=== PATIENT | male | born 1985 | race Hispanic/Latino ===

== ENCOUNTER 2018-03-17 17:12 | Inpatient (IN) | payer SELFPAY ==
[~2018-03-17 17:12] MED LIST: Bacitracin Zinc Ointment 30 gm TUBE ONE; Heparin 1,000 UNITS/ML VIAL ONE; Lidocaine 0.5%/Epinephrine 1:200,000 50 ml Vial ONE; Thrombin 5000 UNITS/5 ML VIAL ONE
[2018-03-17] MEDS ORDERED: Mannitol 12.5 GM/50 ML ONE (17:44)
[2018-03-17] MEDS ORDERED: manNITOL 20% 500 ML ONE (17:46)
[2018-03-17] MEDS ORDERED: levETIRAcetam 1000 MG/100 ML PREMIX BAG ONE ×2 (17:48→17:57)
[2018-03-17] MEDS ORDERED: Fentanyl 100 MCG/2 ML VIAL ONE ×2 (17:49→22:06)
[2018-03-17] MEDS ORDERED: levETIRAcetam In NaCl (Iso-Os) 1,000 MG in Premix Bag 1 BAG IVPB SCH (18:00)
[2018-03-17] MEDS ORDERED: Thrombin 5000 UNITS/5 ML VIAL ONE (18:10)
[2018-03-17] MEDS ORDERED: Sodium Chloride 0.9% 10 ML ONE (18:26)
[2018-03-17] MEDS ORDERED: Esmolol 100 MG/10 ML VIAL ONE (18:56)
[2018-03-17] MEDS ORDERED: PHENYLEPHRINE-NS 100 MCG/ML 10 ML SYRINGE ONE ×2 (18:56→19:32)
[2018-03-17] MEDS ORDERED: Sterile Water 10 ML VIAL ONE (18:56)
[2018-03-17] MEDS ORDERED: CEFAZOLIN 1 GM VIAL ONE (18:56)
[2018-03-17] MEDS ORDERED: Sodium Bicarbonate 2.5 MEQ/5 ML VIAL ONE (19:21)
[2018-03-17] MEDS ORDERED: Sodium Bicarb 50 MEQ/50 ML Abboject 8.4% SYRINGE ONE (19:22)
[2018-03-17] MEDS ORDERED: Phenylephrine HCL 10 MG/ML VIAL ONE (19:31)
[2018-03-17] MEDS ORDERED: Sodium Chloride 0.9% 20 ML ONE (20:11)
[2018-03-17 21:22] LABS: Actual Bicarbonate (HCO3a) 18.2 mEq/L (22-28); Base Excess (BEa) -5.8 mEq/L (-2.0 to +3.0); CO2 Tension 30.5 mmHg (35.0-45.0); Calcium, Ionized 0.99 mmol/L (1.12-1.30); Carboxyhemoglobin (COHb) 0.8 gm% (0.0-3.0); Hemoglobin (Hb) 9.5 g/dL (14.0-18.0); Potassium - ABG Lab 4.63 mmol/L (3.70-5.30); pH, Arterial 7.39 (7.35-7.45)
[2018-03-17] MEDS ORDERED: Ventilator Sedation Protocol 1 EACH FS SCH (21:25)
[2018-03-17] MEDS ORDERED: Dextrose 50% Abboject 50 ML SYRINGE SLOW IVP PRN (21:25)
[2018-03-17] MEDS ORDERED: Sodium Chloride 0.9% 1,000 ML IV SCH (21:25)
[2018-03-17] MEDS ORDERED: Dextrose 5% in Water 1,000 ML IV PRN (21:25)
[2018-03-17] MEDS ORDERED: Ondansetron PF 4 MG/2 ML Vial IVP PRN (21:25)
[2018-03-17] MEDS ORDERED: Ondansetron ODT 4 MG TAB PO PRN (21:25)
[2018-03-17 21:26] LABS: ALV-art Gradient 155.425 (0-20); Puncture Site ALINE
[2018-03-17] MEDS ORDERED: Propofol BOLUS 1,000 MG/100 ML VIAL IV PRN (21:36)
[2018-03-17] MEDS ORDERED: Fentanyl BOLUS 250 ML IVPB PRN (21:36)
[2018-03-17] MEDS ORDERED: DISCONTINUE PREVIOUS NARCOTIC PAIN MEDICATIONS AND BENZODIAZEPINES FS SCH (21:36)
[2018-03-17] MEDS ORDERED: Morphine 2 MG/ML SYRINGE SLOW IVP PRN (21:36)
[2018-03-17] MEDS ORDERED: Propofol 1,000 MG/100 ML VIAL IV ONE (21:37)
[2018-03-17 21:38] LABS: #Eosinphils 0.1 thou/uL (0.0-0.7); #Lymphocytes 2.8 thou/uL (1.20-3.40); #Monocytes 1.2 thou/uL (0.11-0.59); #Neutrophils 10.9 thou/uL (1.40-6.50); %Basophils 0.2 % (0.0-1.0); %Eosinophils 0.4 % (0.0-10.0); %Monocytes 7.8 % (0.0-10.0); %Neutrophils 72.6 % (42.0-75.0); Hemoglobin 9.2 g/dL (14.0-18.0); Mean Corpuscular Hemoglobin 30.9 pg (27.0-31.0); Mean Corpuscular Volume 88.3 fL (78.0-98.0); Mean Platelet Volume 6.1 fL (7.4-10.4); Platelet Count 302 thou/uL (130-400); RBC Distribution Width 11.8 % (11.5-14.5); Red Blood Cell (RBC) Count 2.98 mill/uL (4.70-6.10)
[2018-03-17 22:03] LABS: ALT (SGPT) 56 U/L (8-55); AST (SGOT) 63 U/L (5-34); Albumin 2.7 g/dL (3.5-5.0); Alkaline Phosphatase 95 U/L (40-150); Anion Gap 19 mmol/L (10-20); BUN (Urea Nitrogen) 18 mg/dL (8.9-20.6); Bilirubin, Total 0.3 mg/dL (0.2-1.2); Calc. Creatinine Clearance 0 mL/min (70-130); Calcium 7.2 mg/dL (7.8-10.44); Carbon Dioxide 16 mmol/L (22-29); Chloride 108 mmol/L (98-107); Estimated GFR-MDRD 84; Globulin 2.2 g/dL (2.4-3.5); Glucose 268 mg/dL (70-105); Magnesium 1.8 mg/dL (1.6-2.6); Phosphorus 5.1 mg/dL (2.3-4.7); Potassium 4.4 mmol/L (3.5-5.1); Protein, Total 4.9 g/dL (6.0-8.3); Sodium 139 mmol/L (136-145)
[2018-03-17] MEDS: fentaNYL Citrate/PF 2,000 MCG in Sodium Chloride 0.9% 60 ML IV SCH (22:19)
[2018-03-17] MEDS: Famotidine/PF 20 mg/2ml Vial SLOW IVP SCH (22:27)
[2018-03-17] MEDS: CEFAZOLIN 2 GM/50 ML-DEXTROSE 2 GM in Premix Bag 1 BAG IVPB SCH (22:28)
[2018-03-17] MEDS ORDERED: Calcium Chloride 1 GM/10 ML Abboject SYRINGE IVP SCH (22:30)
[2018-03-17] MEDS ORDERED: Sodium Chloride 0.9% 500 ML IVPB SCH (22:30)
[2018-03-17] MEDS ORDERED: Fentanyl 100 MCG/2 ML VIAL SLOW IVP SCH (22:30)
[2018-03-17 22:52] LABS: INR-International Normal Ratio 1.2; PTT 26.1 SEC (22.9-36.1); Prothrombin Time 15.5 SEC (12.0-14.7)
[2018-03-17] MEDS: hydrALAZINE 20 MG/ML VIAL SLOW IVP PRN (23:13)
[2018-03-18] MEDS: Acetaminophen 1,000 MG in Premix Bag 1 BAG IVPB SCH ×4 (00:10→17:49)
[2018-03-18] MEDS: Lactated Ringer's 1,000 ML IV SCH ×3 (00:49→21:44)
[2018-03-18 01:07] LABS: Actual Bicarbonate (HCO3a) 20.8 mEq/L (22-28); Base Excess (BEa) -3.5 mEq/L (-2.0 to +3.0); CO2 Tension 34.1 mmHg (35.0-45.0); Calcium, Ionized 1.17 mmol/L (1.12-1.30); Hemoglobin (Hb) 7.7 g/dL (14.0-18.0); O2 Tension (PaO2) 145.8 mmHg (80.0-100.0); Potassium - ABG Lab 4.08 mmol/L (3.70-5.30)
[2018-03-18 01:09] LABS: ALV-art Gradient 96.775 (0-20); Puncture Site ALINE
--- NOTE | 2018-03-18 04:15 | HP ---
TRAUMA ATTENDING: Justin Weston MD HISTORY OF PRESENT ILLNESS: This is a 32-year-old male who presented to [facility] as a transfer from [facility] status post traumatic fall. He was taken immediately to the operating room; therefore, his physical exam and history and physical were performed postoperatively. There is no family at bedside and the patient is intubated; therefore, we are unable to obtain a history. History obtained from neurosurgical personnel and medical records review. Per report, the patient had a fall of approximately 18 feet from a roof where he was working. He reportedly landed on his head. He was initially seen and evaluated at [facility] and found to have evidence of epidural hematoma with subdural hematoma as well. It is unclear what his GCS was on arrival to the initial facility. Neurosurgery was notified and they transferred the patient emergently to [facility]. The patient was taken immediately from the helipad to the operating room for cranial decompression. Postoperatively, the patient's initial vital signs were heart rate in the 160s, systolic blood pressure in the one- teens. The patient was over-breathing with the ventilator. He is moving all extremities at this time, but does not follow commands. GCS is E1, V1, M5 for a 7T. PAST MEDICAL HISTORY: Allergies, unknown. HOME MEDICATIONS: Unknown. CHRONIC MEDICAL ILLNESSES: Unknown. PAST SURGICAL HISTORY: Unknown. SOCIAL HISTORY: Unknown. FAMILY HISTORY: Unknown. REVIEW OF SYSTEMS: Unobtainable. PHYSICAL EXAMINATION: VITAL SIGNS: Most recent vital signs, heart rate 109, blood pressure 140/60, O2 saturation 100%, respiratory rate 16. GENERAL: Young male in moderate distress, thrashing in bed. HEAD: Surgical dressing is clean, dry, and intact. There is a SIRIA drain with serosanguineous drainage. EYES: Bilateral swelling with left greater than right ecchymosis. Left pupil is approximately 5 to 6 mm and fixed. Right pupil is 2 mm and does not appear to be reactive. NECK: Supple. Trachea is midline. CHEST: Atraumatic. Symmetric chest rise. LUNGS: Clear to auscultation bilaterally. CARDIOVASCULAR: Tachycardic. No obvious murmurs, rubs, or gallops. GI: Abdomen is soft, nontender, nondistended. Bowel sounds are positive. MUSCULOSKELETAL: Moves all extremities x4. No gross bony deformity. NEUROLOGIC: GCS 7T, moves all extremities. Does not follow commands. LABORATORY FINDINGS: Postoperative laboratory findings include WBC 15.0, hemoglobin 9.2, hematocrit 26.3, platelet count 302. PT/INR is pending. Sodium 139, potassium 4.4, chloride 108, carbon dioxide 16, BUN 18, creatinine 1.03, glucose 268. Calcium 7.2, phosphorus 5.1, AST 63, ALT 56, pH 7.39, pCO2 of 30.5, pO2 of 56, base excess -5.8, ionized calcium 0.99, and bicarb 18.2. RADIOGRAPHIC FINDINGS: CT of the head was read as, left frontotemporal subdural hematoma with intra-axial hemorrhage, comminuted displaced calvarial fractures including the left frontal, temporal bones, and left orbital roof, left to right subfalcine herniation, sphenoid body fracture with evidence of possible epidural hematoma compressing the left temporal lobe. CT of the C-spine and T-spine with superior endplate T3 fracture. CT of the chest, abdomen, and pelvis demonstrated a T3 compression fracture approximately 20% and mild compression fracture of L1. CT of the face with multiple facial fractures to include left zygomatic arch, left inferior orbital rim, left orbital floor fracture with possible herniation of intraorbital fat, left orbital roof fracture, left lateral orbital rim, and frontozygomatic suture diastasis, sagittal fracture of the right sphenoid body, and cribriform plate fractures. Chest x-ray with diffuse left lung infiltrates. VENTILATOR SETTINGS: SIMV, respiratory rate of 14, tidal volume 500, PEEP of 5, FiO2 of 40%, pressure support of 10. ASSESSMENT: 1. Status post fall 18 to 20 feet. 2. Severe traumatic brain injury, status post decompressive surgery with epidural, subarachnoid, and subdural hemorrhage. 3. Multiple facial fractures, left greater than right. 4. Acute traumatic respiratory failure secondary to above. 5. Hypocalcemia. 6. Acute traumatic pain. 7. Metabolic acidosis. 8. T3 and L1 compression fractures. PLAN: The patient has been admitted to ICU. The patient did receive one dose of mannitol in the operating room. We will follow urine output and sodium levels. Continue fluid resuscitation. Maximize medical therapy. Continuous end-tidal CO2 monitoring for a goal CO2 of 32 to 35. Per Neurosurgery, systolic blood pressure goal less than 140, attempt to maintain MAP of at least 70. IV Sedation and analgesia; q1-hour neuro checks. Head of bed at 30 degrees, but not greater than until Neurosurgery has ordered a planned brace for thoracic and possible lumbar spine fractures. OMFS evaluation. Critical care consultation for assistance with critical care management. 2 gram of calcium chloride now. Plan of care was discussed with Neurosurgery and trauma attending. No family at bedside or information available for update. Total critical care time spent at the patient's bedside approximately 48 minutes. Job ID: [id number] MTDD
[2018-03-18 04:42] LABS: #Lymphocytes 2.1 thou/uL (1.20-3.40); #Monocytes 0.9 thou/uL (0.11-0.59); #Neutrophils 6.8 thou/uL (1.40-6.50); %Basophils 0.1 % (0.0-1.0); %Eosinophils 0.4 % (0.0-10.0); %Lymphocytes 21.1 % (21.0-51.0); %Monocytes 9.3 % (0.0-10.0); %Neutrophils 69.1 % (42.0-75.0); Hemoglobin 7.1 g/dL (14.0-18.0); Mean Corpuscular HGB CONC 34.9 g/dL (32.0-36.0); Mean Corpuscular Hemoglobin 30.8 pg (27.0-31.0); Mean Corpuscular Volume 88.4 fL (78.0-98.0); Mean Platelet Volume 6.7 fL (7.4-10.4); Platelet Count 232 thou/uL (130-400); RBC Distribution Width 11.8 % (11.5-14.5); Red Blood Cell (RBC) Count 2.32 mill/uL (4.70-6.10); White Blood Cell (WBC) Count 9.8 thou/uL (4.8-10.8)
[2018-03-18 05:03] LABS: Anion Gap 11 mmol/L (10-20); BUN (Urea Nitrogen) 14 mg/dL (8.9-20.6); Calc. Creatinine Clearance 205 mL/min (70-130); Calcium 8.3 mg/dL (7.8-10.44); Carbon Dioxide 22 mmol/L (22-29); Chloride 112 mmol/L (98-107); Estimated GFR-MDRD Greater than 90; Glucose 139 mg/dL (70-105); Magnesium 1.5 mg/dL (1.6-2.6); Phosphorus 3.8 mg/dL (2.3-4.7); Potassium 4.5 mmol/L (3.5-5.1); Sodium 140 mmol/L (136-145)
--- NOTE | 2018-03-18 06:05 | CON ---
DATE OF CONSULTATION: This is a 50-minute initial patient evaluation, of which greater than 50% of the exam was spent counseling and coordinating the patient's care. Remainder of the exam was spent in reviewing the patient's medical records and review of appropriate imaging studies. CHIEF COMPLAINT: Status post fall from an 18-feet roof with severe head trauma including left temporal epidural hematoma. HISTORY OF PRESENT ILLNESS: Mr. Conway is a 32-year-old male who presents to [facility] as a transfer from [facility] as a trauma. Initially, the patient was known only as Camden Dickerson. The patient was unable to provide any type of history as he was intubated; however, review of the patient's medical records and discussion with medical providers notes that the patient fell roughly 18 feet from a roof while at work today. He suffered significant facial and head trauma. CT scans were obtained, most notably that showed multiple facial fractures and a displaced left temporal skull fracture with traumatic subarachnoid hemorrhage and subdural hematoma. Given the acuity required of the patient's care, he was transferred from ER and was taken to the OR for immediate evacuation of his left temporal epidural hematoma. No family or co-workers are available to discuss the patient's medical history. According to the [facility], the patient was following commands in all four extremities prior to going to CT scan, but when he returned from CT scan, became very combative and quickly neurologically declined, requiring him to be intubated. He did however, have movement in all 4 extremities when the patient was given rocuronium in flight when transferred from the [facility] to [place] [facility] room. Upon his arrival to [facility], the patient had no movement of any of the extremities. He did appear to have some left-sided facial trauma and significant swelling of the left eye. PHYSICAL EXAMINATION: The patient had no movement of any of the extremities. He was taken emergently to the OR for immediate evacuation of his epidural hematoma. His left eye was significantly swollen with surrounding ecchymosis and some superficial abrasions to the left side of the face. His right pupil is roughly 3 to 4 mm and minimally reactive while the left pupil was fixed and dilated. The patient was intubated at that time and again had received just prior to his arrival. Systolic blood pressure was in the 160s with diastolic in the 110s. IMPRESSION AND DIAGNOSES: Status post fall with left temporal region epidural hematoma. PLAN: We will plan to take the patient emergently to the OR for evacuation of left temporal epidural hematoma as well as left temporoparietal subdural hematoma. Again, this is emergent in nature. Unfortunately, there is no family or co-workers to update regarding the patient's guarded prognosis. Job ID: [id number]
[2018-03-18] MEDS: Propofol 1,000 MG/100 ML VIAL IV PRN ×3 (06:13→21:43)
[2018-03-18] MEDS: CEFAZOLIN 2 GM/50 ML-DEXTROSE 2 GM in Premix Bag 1 BAG IVPB SCH ×3 (06:13→21:43)
[2018-03-18] MEDS ORDERED: CCU Electrolyte Replacement 1 EACH FS ONE (07:53)
[2018-03-18] MEDS ORDERED: Potassium Phosphate 15 MMOL in Sodium Chloride 0.9% 250 ML 250 ML IV PRN (08:17)
[2018-03-18] MEDS ORDERED: Magnesium Oxide 400 MG TAB PO PRN ×2 (08:17)
[2018-03-18] MEDS ORDERED: CCU ELECTROLYTE REPLACEMENT PROTOCOL FS PRN (08:17)
[2018-03-18] MEDS ORDERED: Potassium Chloride 40 MEQ in Sodium Chloride 0.9% 250 ML 250 ML IVPB PRN (08:17)
[2018-03-18] MEDS ORDERED: Potassium Chloride 20 MEQ TAB PO PRN (08:17)
[2018-03-18] MEDS ORDERED: Potassium Phosphate 12 MMOL in Sodium Chloride 0.9% 250 ML 250 ML IV PRN (08:17)
[2018-03-18] MEDS ORDERED: Magnesium 2 GM/NS 0.9% 100 ML 2 GM in Premix Bag 1 BAG IVPB PRN (08:17)
[2018-03-18] MEDS ORDERED: Potassium Phosphate 9 MMOL in Sodium Chloride 0.9% 100 ML IVPB PRN (08:17)
[2018-03-18] MEDS ORDERED: Iopamidol 370 76% 100 ML VIAL ONE (09:00)
--- NOTE | 2018-03-18 09:04 | CT ---
PRELIMINARY REPORT/[facility]/EMERGENTY AFTER-HOURS PROCEDURE CT Head Without Contrast EXAM DATE/TIME: 03/18/2018 4:35 AM CLINICAL HISTORY: 32 years old, male; Condition or disease; Other: Edh evac; Prior surgery; Surgery date: Postoperative (0-2 days); Patient HX: Follow up S/P edh evac TECHNIQUE: Axial computed tomography images of the head/brain without contrast. COMPARISON: No relevant prior studies available. FINDINGS: Brain: See Bones/joints Finding. Midline shift: There is slight left to right midline shift of approximately 2 mm. Ventricles: Normal. No ventriculomegaly. Bones/joints: Postsurgical changes with left craniotomy status post left extra-axial hematoma drainag e. There is air and residual hemorrhage in the left frontal region including an approximately 1.7 cm focus of intraparenchymal hemorrhage and air. Comparison with previous films would be helpful to assess for interval change. Status post left-sided craniotomy with what appears to be comm inuted fracture of the inferior aspect of the left frontal bone. Sinuses: Moderate paranasal sinus opacification. Mastoid air cells: Normal as visualized. No mastoid effusion. IMPRESSION: 1. Postsurgical changes with left craniotomy status post left extra-axial hematoma drainage. There is air and residual hemorrhage in the left frontal region including an approximately 1.7 cm focus of in traparenchymal hemorrhage and air. There is slight left to right midline shift of approximately 2 mm. Comparison with previous films would be helpful to assess for interval change. 2. Remainder of findings as described above. Thank you for allowing us to participate in the care of your patient. Dictated and Authenticated by: Shilpa Kenyon MD 03/18/2018 5:56 AM Central Time ([place] & [place]) HEAD CT WITHOUT CONTRAST: Date: 03/18/18 COMPARISON: None. HISTORY: Evaluate following epidural hematoma evacuation. FINDINGS: There is partial opacification of the sphenoid sinuses and ethmoid air cells bilaterally. There is a comminuted fracture involving the orbital roof laterally on the left. There is a fracture involving t he floor of the middle cranial fossa on the left. There is a fracture suspected involving the clivus to the right of midline extending into the right sphenoid sinus. There is a fracture in the region of the sphenoid roof on the right extending into the region of the sella turcica. CT of the facial bone s is suggested for full assessment. Craniotomy changes are noted on the left in the frontal region. There is pneumocephalus on the left consistent with recent surgery. There is a postoperative drain wi thin the ventral floor of the left middle cranial fossa. There is mild left to right midline shift measuring in the 2-3 mm range. There is small volume bilateral subarachnoid hemorrhage and bilateral frontal lobes near the vertex, left greater than right. Additional foci of subarachnoid hemorrhage suspected on the posterior left t emporoparietal region and possibly the inferolateral posterior right frontal region. A focus of intra-axial hemorrhage is suspected within the left frontal lobe on axial image 16 measuri ng 6.0 mm. Further inferiorly within the inferolateral aspect of the left frontal lobe, there is a 1. 9 cm intra-axial hemorrhage suggesting possible hemorrhagic contusion. There is small volume extra-ax ial blood within the middle cranial fossa on the left measuring 9.0 mm. In addition, extra-axial bloo d is seen anterior to the left temporal tip, measuring up to 1.0 cm in greatest thickness, with subdu ral blood lateral to the left temporal lobe on axial image 10. Probable partially visualized fracture of zygomatic arch noted on the left. IMPRESSION: Intracranial hemorrhage bilaterally, left greater than right, as detailed above. Foci of intra-axial hemorrhage are noted within the left frontal lobe as well. There is minimal left to right midline cruz ft and there are extensive fractures in the region of the left orbit and skull base, which are not we ll assessed on this examination. Detailed assessment via CT examination of the facial bones is advise azeem Moffett. POS: [facility]
--- NOTE | 2018-03-18 09:05 | RAD ---
CHEST 1 VIEW: Date: 03/18/18 HISTORY: Dyspnea. Intubated. FINDINGS: No comparison. Cardiac silhouette is magnified by projection. Pulmonary vasculature is accentuated by shallow inspir ation. Mediastinum midline. Tip of an endotracheal catheter overlies the thoracic inlet. Tip of a rig ht subclavian central venous catheter overlies the inferior margin of the right atrium. No evidence o f pneumothorax. engineer intern leads overlie the chest. IMPRESSION: Endotracheal catheter and right subclavian central venous catheter are in good radiographic position. POS: [facility]
--- NOTE | 2018-03-18 09:12 | CT ---
CT THORAX WITHOUT CONTRAST: Date: 03/18/18 HISTORY: Status post fall from roof. Decreased hemoglobin and hematocrit. COMPARISON: None. TECHNIQUE: Noncontrast chest CT is performed in the axial plane. Reformatted images are submitted for interpreta tion. FINDINGS: There is an endotracheal and nasogastric tube. There is no mediastinal mass, lymphadenopathy, or bertin rosana. The visualized solid organs are unremarkable. Vicarious excretion of contrast into the gallblad genna is noted. Visualized lung parenchyma demonstrate bibasilar and dependent consolidation, which is presumed to be due to atelectasis. Aspiration and/or pneumonia cannot be excluded. There is a nonspecific opacifica tion in the left lung apex. Trachea and central bronchi are patent. There is a small fracture involving the anterior superior aspect of T2. There is a mild compression f racture with mild loss of vertebral body height involving the T3 vertebral body. Mild retropulsion is suspected. There is a small fracture fragment along the anterior superior aspect of the T3 vertebral body, to the right side. The remaining thoracic vertebra demonstrate preservation of vertebral body height. No fracture. Central spinal canal and neural foramina are patent. IMPRESSION: 1. Fractures involving the T2 and T3 vertebral bodies as described above. 2. Lung parenchymal opacification as detailed above. POS: [facility]
--- NOTE | 2018-03-18 09:18 | CT ---
LUMBAR SPINE CT WITHOUT CONTRAST: Date: 03/18/18 HISTORY: Patient fell from roof. Decreased hemoglobin and hematocrit. COMPARISON: None. TECHNIQUE: Noncontrast lumbar spine CT is performed in the axial plane. Reformatted images are submitted for int erpretation. FINDINGS: No evidence of a hematoma in the visualized mesentery and retroperitoneal structures. There is maribeth ous excretion of contrast into the gallbladder. Small amount of contrast is suggested in the intraren al and extrarenal collecting systems. Correlate for recent IV contrast administration. There is irregularity involving the posterior superior end plate of L5 with sclerosis suggesting a re mote Schmorl's node. Lumbar spine vertebral body height is maintained. There are no lumbar spine frac tures. There is no spondylolisthesis. No spondylolysis. There is partial sacralization of L5 with pse udoarthrosis of the left and right L5 ala with the sacrum. Limited evaluation of the contents of the central spinal canal and neural foramina due to technique. From T12-L1 to L2-L3, no significant central canal stenosis or neural foraminal narrowing. L3-L4: Generalized disc bulge and ligamentum flavum thickening result in mild central canal stenosis . Neural foramina are patent. L4-L5: Generalized disc bulge abuts the thecal sac. There is no significant central canal stenosis. Right neural foramen is mild to moderately narrowed. Left neural foramen is minimally narrowed. IMPRESSION: 1. No significant central canal stenosis or foraminal narrowing. 2. No evidence of a lumbar spine fracture. 3. Remote injury along the posterior superior aspect of the L4 vertebral body with sclerosis suggest s a remote Schmorl's node. POS: [facility]
--- NOTE | 2018-03-18 09:38 | CT ---
CT MAXILLOFACIAL NONCONTRAST: Date: 03/18/18 Time; 0842 hours HISTORY: 32-year-old male status post acute head trauma and facial trauma from fall from roof. FINDINGS: Endotracheal tube passes through the larynx. Orogastric tube is located posterior and to the left of the larynx, presumably in the esophagus. Partial visualization of very recent ORIF of the comminuted fractures of left frontal and temporal (squamosal portion) bones. External surgical drain is now pres ent in the extra-axial hematoma in the left middle cranial fossa, which has decreased in volume since original CT at [facility]. Mildly displaced fractures of cribriform plate. Nondi splaced fracture of left inferior orbital rim continuing posteriorly as a mildly depressed left orbit al floor fracture. Left zygomatic arch displaced fracture. Diastasis of left zygomaticofrontal suture and displaced fracture of superolateral orbital rim. Interval evacuation of the left lateral extraco nal intraorbital hematoma since the original CT at [facility]. A minimal amount r emains. Interval improvement in the left proptosis. Preseptal periorbital soft tissue swelling on the left. Minimally displaced fractures of anterior wall and posterolateral wall of left maxillary sinus . Left hemoantrum. Near total opacification of nasal cavity, sphenoid sinus, and ethmoid air cells. N ondisplaced sagittally oriented fracture through right side of body of sphenoid, including draper of r ight sphenoid air cell. No mandibular fracture. IMPRESSION: 1. Status post open reduction and internal fixation of left frontotemporal acute, traumatic comminut ed fractures. 2. Status post evacuation of subdural or epidural hematoma in left middle cranial fossa, now with clark rgical drain. 3. Interval evacuation of left lateral extraconal intraorbital hematoma. 4. Displaced acute, traumatic facial bone fractures, including the left ZMC (zygomaticomaxillary com plex) fractures, bilateral cribiform plate, left orbit, and sphenoid body. POS: [facility]
[2018-03-18] MEDS: Famotidine/PF 20 mg/2ml Vial SLOW IVP SCH ×2 (10:15→21:44)
--- NOTE | 2018-03-18 10:28 | PRG ---
DATE OF SERVICE: 03/18/2018 SUBJECTIVE: Mr. Conway was taken to [facility]. Head CT demonstrated complex basal and calvarial skull fractures extending to the left side of the skull. He also had associated epidural and subdural hematoma with left frontal parenchymal contusion. He was taken emergently to the operating room following transfer to [facility] for higher level of care. This was performed given the patient's clinical and radiologic progression and his neurological decline. Postoperative head CT demonstrates improvement in midline shift and expected postoperative changes. We will keep his epidural drain in place at this time and obtain CT of the thoracic and lumbar spine. I reviewed the CT of the cervical spine from [facility] and it is negative for acute abnormality. Job ID: [id number]
[2018-03-18 10:34] LABS: Hemoglobin 6.5 g/dL (14.0-18.0); Platelet Count 229 thou/uL (130-400)
--- NOTE | 2018-03-18 10:44 | CT ---
CHEST CT WITH CONTRAST ABDOMEN CT WITH CONTRAST PELVIC CT WITH CONTRAST: Date: 03/18/18 HISTORY: Patient recently fell from a roof. Drop in hemoglobin and hematocrit. COMPARISON: None. TECHNIQUE: Chest, abdomen, and pelvic CT performed in axial plane. Coronal reformatted images are submitted for interpretation. FINDINGS: CHEST CT: Note is made of an endotracheal and nasogastric tube. Unremarkable axilla and thyroid gland. No media stinal mass, lymphadenopathy, or hematoma. Heart size is within normal limits. Visualized aorta has a normal caliber. No periaortic fat stranding. Trachea and central bronchi are patent. Patchy opacities in both upper lobes, as well as consolidatio n in the dependent portion of both lower lobes suggesting multilobar atelectasis, possible aspiration or pneumonia. Contusion is less favored. No pleural effusion or pneumothorax. ABDOMEN CT: Vicarious excretion of contrast in the gallbladder. There is appropriate enhancement of the solid org ans. No evidence of perihepatic or perisplenic free fluid. Pancreas and adrenal glands are unremarkab le. Symmetric enhancement of the kidneys. No obstructive uropathy. No mesenteric mass, lymphadenopathy, free air, or free fluid. Limited evaluation of the alimentary canal. No evidence of bowel obstruction. Normal caliber appendix . Unremarkable colon. Symmetric attenuation of psoas muscles. No retroperitoneal mass, lymphadenopathy, or hematoma. CT PELVIS: Urinary bladder is decompressed due to Ibarra catheterization. No pelvic mass, lymphadenopathy, free a ir, or free fluid. The visualized bony thorax and bony pelvis are intact. The aforementioned fractures of the thoracic vertebra have already been described on a separate [facility] spine CT report. IMPRESSION: 1. Consolidation of the lung parenchyma, which is presumed to be due to atelectasis, aspiration, or pneumonia. Contusions are less favored. 2. No evidence of a retroperitoneal hematoma. POS: [facility]
[2018-03-18] MEDS: Thiamine HCl 200 MG/2 ML VIAL SLOW IVP SCH (10:46)
--- NOTE | 2018-03-18 11:31 | CON ---
DATE OF CONSULTATION: 03/18/2018 CONSULTING PHYSICIAN: Trauma Service. REASON FOR CONSULTATION: Ventilator management following encompassed 35 minutes of critical care time. HISTORY OF PRESENT ILLNESS: This is a 32-year-old male, who was accepted in transfer from [facility] last night. He apparently fell backwards from a ladder, hitting his head sustaining an epidural hematoma and subdural hematoma. He went to the operating room and had cranial decompression performed by Neurosurgery. He also has multiple facial fractures including the left zygomatic arch, left inferior orbital rim, left orbital floor with possible herniation of intraorbital fat, left orbital roof fracture, left lateral orbital rim fracture and frontozygomatic suture diastasis, sagittal fracture of the right sphenoid body and cribriform plate fractures. I believe, he also has a T3 fracture. Did not have any acute injuries noted on CT of chest, abdomen, and pelvis other than T3 fracture and mild compression fracture of L1. PAST MEDICAL HISTORY: Unknown. PAST SURGICAL HISTORY: Unknown. ALLERGIES: UNKNOWN. SOCIAL HISTORY: Unknown. REVIEW OF SYSTEMS: Not obtainable. There is no family present to give history. PHYSICAL EXAMINATION: VITAL SIGNS: Temperature 99.0, pulse 78, blood pressure 111/70, O2 saturation 100%. He is currently on propofol and fentanyl. NEUROLOGIC: The patient moves all 4 extremities spontaneously with stimulation. Did not follow any commands. Will not open his eyes to command. HEENT: He has extensive periorbital edema. When I assist him in opening his eyes, his pupils are reactive. Sclerae are anicteric. Oropharynx, ET tube in place. NECK: No JVD. LUNGS: Clear without wheezing or rhonchi. CARDIAC: S1 and S2. Slightly tachycardic. No murmur. ABDOMEN: Soft, nontender, and nondistended. EXTREMITIES: No clubbing, cyanosis, or edema. LABORATORY DATA: PH 7.40, pCO2 of 34, pO2 of 145 on SIMV rate 18, tidal volume 500, PEEP 5, pressure support 10, and FiO2 of 40%. Sodium 140, potassium 4.5, chloride 112, CO2 of 22, BUN 14, creatinine 0.7, glucose 139, phosphorus 3.8, and magnesium 1.5. White blood cell count 9.8, hemoglobin 7.1, hematocrit 20.5, and platelet count 232. DIAGNOSTIC DATA: Chest x-ray demonstrated ET tube that is appropriately placed. Lung randall looked to be fairly clear. Diaphragm margin is clear. He has a central line coursing from the right subclavian vein down to his superior vena cava. I do not see any evidence of pneumothorax. Brain CT from today demonstrates the multiple fractures described earlier. There is a large hematoma in the left temporal region. There is some air in the subdural space. I do not see any midline shift on this current scan, looks to be scattered subarachnoid hemorrhage throughout. ASSESSMENT: 1. Status post traumatic brain injury after fall. 2. T-spine fracture. 3. Multiple facial fractures. 4. Significant drop in hemoglobin and hematocrit. RECOMMENDATIONS: 1. I will discuss with the Trauma Service. It might be worthwhile to repeat CT of his chest, abdomen, and pelvis given the drop in his H and H. I am not sure the drop can solely be explained by IV fluids. 2. Low threshold for transfusion. 3. Not weanable at this time until his mental status improves. 4. Add thiamine in case he is an alcohol abuser. Job ID: [id number]
[2018-03-18] MEDS: Piperacillin/Tazobactam 3.375 GM in Sodium Chloride 0.9% 100 ML IVPB SCH ×2 (11:49→17:50)
[2018-03-18] MEDS: fentaNYL Citrate/PF 2,000 MCG in Sodium Chloride 0.9% 60 ML IV SCH (14:11)
--- NOTE | 2018-03-18 14:32 | OP ---
DATE OF PROCEDURE: 03/18/2018 OPERATING ROOM: 12. WOUND CLASSIFICATION: Contaminated wound. RAIL OPERATIONS CONTROLLER: Jigar Tan PA-C PREPROCEDURE DIAGNOSES: Complex comminuted open skull fracture of the left frontal and temporal regions with exposed brain, dural laceration, epidural hematoma, subdural hematoma, and left frontal hemorrhagic contusion. Neurologic and radiologic decline. POSTPROCEDURE DIAGNOSES: Complex comminuted open skull fracture of the left frontal and temporal regions with exposed brain, dural laceration, epidural hematoma, subdural hematoma, and left frontal hemorrhagic contusion. Neurologic and radiologic decline. PROCEDURE: 1. Left frontotemporal craniotomy for epidural, subdural and intraparenchymal hemorrhagic contusion evacuation and left frontal lobe debridement 2. Repair of complex comminuted open skull fracture A modifier 57 should be added to the surgery as the decision to operate was made on the day I saw the patient. DESCRIPTION OF PROCEDURE: Given the emergent nature, the patient was positioned supine on the OR table and his head turned to the left to expose the left frontal, temporal, and parietal regions. We maintained cervical spine in neutral position. Abrasions on the left hemicranium were identified in the scalp. A large question-michel incision was drawn out following the clipping of hair. Sterile cleansing, preparation, and draping was performed. Proper patient pause and identification were again performed. A question-michel incision was then opened in the scalp, reflected with the temporalis muscle. Complex comminuted skull fracture was identified with left frontal lobe emanating out of the fracture defect and dural laceration. We removed the fracture in multiple fragments and exposed the left frontotemporal region, and a large epidural hematoma was evacuated. Hemostasis was maintained. The dura was then opened and an acute subdural hematoma was also evacuated. There was a left frontal hemorrhagic contusion and this was also evacuated and hemostased. Copious irrigation occurred throughout. We then on the back table repaired his complex comminuted open skull fracture with multiple titanium plates and screws. We then replaced it and placed titanium plates and screws around the periphery of the flap to secure to the skull. An epidural drain was placed and placed to bulb suction. Wound was copiously irrigated and closed in an anatomic layers following sprinkling of vancomycin powder. The patient was taken back to the ICU, intubated. Job ID: [id number] [facility]
--- NOTE | 2018-03-18 14:35 | PRG ---
DATE OF SERVICE: 03/18/2018 Please see Disha Covarrubias's H and P for full details. Mr. Conway is status post craniotomy last night. Appreciate Dr. Coreas's anesthesiologists' assistant in the critical care. Plans per Neurosurgery and Dr. Coreas. Trauma will continue to follow. Job ID: [id number]
[2018-03-18 20:19] LABS: Hemoglobin 8.4 g/dL (14.0-18.0); Platelet Count 206 thou/uL (130-400)
[2018-03-19] MEDS: Acetaminophen 1,000 MG in Premix Bag 1 BAG IVPB SCH ×4 (01:45→17:46)
[2018-03-19] MEDS: Piperacillin/Tazobactam 3.375 GM in Sodium Chloride 0.9% 100 ML IVPB SCH ×4 (01:46→17:46)
[2018-03-19] MEDS: Lactated Ringer's 1,000 ML IV SCH ×4 (01:47→23:05)
[2018-03-19] MEDS: Propofol 1,000 MG/100 ML VIAL IV PRN ×4 (01:47→17:45)
[2018-03-19] MEDS: fentaNYL Citrate/PF 2,000 MCG in Sodium Chloride 0.9% 60 ML IV SCH ×2 (05:05→18:31)
[2018-03-19] MEDS: CEFAZOLIN 2 GM/50 ML-DEXTROSE 2 GM in Premix Bag 1 BAG IVPB SCH (06:11)
[2018-03-19 06:18] LABS: #Eosinphils 0.2 thou/uL (0.0-0.7); #Lymphocytes 2.4 thou/uL (1.20-3.40); #Monocytes 0.8 thou/uL (0.11-0.59); #Neutrophils 6.8 thou/uL (1.40-6.50); %Basophils 0.3 % (0.0-1.0); %Eosinophils 1.5 % (0.0-10.0); %Lymphocytes 23.3 % (21.0-51.0); %Monocytes 7.6 % (0.0-10.0); %Neutrophils 67.3 % (42.0-75.0); Hemoglobin 8.4 g/dL (14.0-18.0); Mean Corpuscular Volume 88.5 fL (78.0-98.0); Mean Platelet Volume 6.1 fL (7.4-10.4); Platelet Count 217 thou/uL (130-400); Red Blood Cell (RBC) Count 2.72 mill/uL (4.70-6.10); White Blood Cell (WBC) Count 10.1 thou/uL (4.8-10.8)
[2018-03-19 06:33] LABS: Anion Gap 11 mmol/L (10-20); BUN (Urea Nitrogen) 6 mg/dL (8.9-20.6); Calc. Creatinine Clearance 205 mL/min (70-130); Calcium 8.2 mg/dL (7.8-10.44); Carbon Dioxide 23 mmol/L (22-29); Chloride 109 mmol/L (98-107); Estimated GFR-MDRD Greater than 90; Glucose 128 mg/dL (70-105); Potassium 3.4 mmol/L (3.5-5.1); Sodium 140 mmol/L (136-145)
[2018-03-19 07:01] LABS: Actual Bicarbonate (HCO3a) 23.7 mEq/L (22-28); Base Excess (BEa) -0.3 mEq/L (-2.0 to +3.0); CO2 Tension 35.8 mmHg (35.0-45.0); Calcium, Ionized 1.11 mmol/L (1.12-1.30); Carboxyhemoglobin (COHb) 0.7 gm% (0.0-3.0); Hemoglobin (Hb) 8.4 g/dL (14.0-18.0); O2 Tension (PaO2) 64.1 mmHg (80.0-100.0); pH, Arterial 7.44 (7.35-7.45)
[2018-03-19 07:30] LABS: Puncture Site RBA
[2018-03-19] MEDS: Thiamine HCl 200 MG/2 ML VIAL SLOW IVP SCH (08:50)
[2018-03-19] MEDS: Famotidine/PF 20 mg/2ml Vial SLOW IVP SCH ×2 (08:51→21:40)
--- NOTE | 2018-03-19 08:59 | PRG ---
DATE OF SERVICE: 03/19/2018 TIME SPENT: 35 minutes of critical care time. SUBJECTIVE: This patient remains intubated on mechanical ventilation. He has had problems with O2 desaturations during the night, some of that was related to agitation. OBJECTIVE: VITAL SIGNS: On exam, his temperature is 99.0. Temperature has been as high as 100.8, pulse generally in the 90s to 100s, and blood pressure 125/71. Intake 5624, output 2413. HEENT: Extensive facial swelling. He has bandage over his head. He has an ET tube in his mouth. NECK: No JVD. CHEST: Diminished breath sounds at bases. CARDIAC: S1 and S2. Regular. Tachycardic. ABDOMEN: Soft, nontender. He is tolerating tube feeds. EXTREMITIES: Generalized mild edema throughout. LABORATORY DATA: Sodium 140, potassium 3.4, chloride 109, CO2 of 23, BUN 6, creatinine 0.7, and glucose 128. PH of 7.44, pCO2 of 35, pO2 of 64 on SIMV rate of 18, tidal volume 500, PEEP of 5%, pressure support of 10, and FiO2 of 60%. White blood cell count 10.1, hematocrit 24.1, and platelet count 217. No x-ray was done today. ASSESSMENT: 1. Extensive head injury after falling from a ladder. 2. Acute respiratory failure requiring mechanical ventilation. 3. Pulmonary contusion versus right upper lobe aspiration. 4. Anemia due to blood loss. PLAN: 1. I have switched him over to bilevel ventilation in hopes of weaning his FiO2. 2. Cut down on his IV fluids. 3. Continue enteral tube feeds. 4. Continue thiamine supplementation, as I suspect he probably has an alcohol history. Job ID: [id number]
[2018-03-19] MEDS: Potassium Chloride 40 MEQ in Premix Bag 1 BAG IVPB PRN (10:50)
[2018-03-19] MEDS: Lorazepam 2 MG/ML VIAL SLOW IVP PRN (11:58)
[2018-03-19 13:07] LABS: Bacteria/HPF None Seen HPF (None Seen); Hyaline Casts/LPF 4-6 HYALINE CAST LPF (0-3 Hyaline); Pathc Cast-AUWi Flag 0.43 (0-2.49); RBC/HPF 0-3 HPF (0-3); Squamous Epithelial 0-3 HPF (0-3); WBC/HPF 0-3 HPF (0-3)
[2018-03-19 13:15] LABS: Sperm/HPF 1+ HPF (None Seen)
--- NOTE | 2018-03-19 13:22 | PRG ---
DATE OF SERVICE: 03/19/2018 Mr. Trivedi is gross quite agitated when his sedation is lifted and moves all 4 extremities. He is even attempted to open his left eye. His drain output has begun to decrease in the epidural space. We will leave this in at this time, however. He remains on Ancef and levetiracetam. Overall, I am quite pleased with how he is doing. Job ID: [id number]
--- NOTE | 2018-03-19 13:24 | ULT ---
BILATERAL LOWER EXTREMITY VENOUS DUPLEX ULTRASOUND INCLUDING COLOR AND SPECTRAL DOPPLER IMAGING: Date: 03/19/18 HISTORY: 32-year-old male with history of impaired mobility, post injury from trauma. TECHNIQUE/FINDINGS: Exam performed from groin to ankle with evaluation of the greater saphenous, common femoral, superfic ial femoral, profunda femoral, popliteal, trifurcation, and posterior tibial vein regions, except on the left side, the left popliteal and left posterior tibial vein were inadequately evaluated because of the patient's position and compressibility could not be performed. The remaining visualized portio ns of the deep venous system of both right and left lower extremity demonstrates phasic flow at all l evels. No evidence for intraluminal thrombus. IMPRESSION: Slightly limited study due to lack of visualization and inability to image the left popliteal and lef t posterior tibial vein because of patient position. No evidence for deep venous thrombosis. POS: [facility]
--- NOTE | 2018-03-19 16:09 | PRG ---
DATE OF SERVICE: 03/19/2018 SUBJECTIVE: The patient is seen at the bedside seat. Please see Disha Covarrubias's progress note for full details. Await neuro improvement. He may need trach and PEG in the next week. Trauma will continue to follow. Job ID: [id number]
[2018-03-20] MEDS: Acetaminophen 1,000 MG in Premix Bag 1 BAG IVPB SCH ×4 (00:30→11:42)
[2018-03-20] MEDS: Lactated Ringer's 1,000 ML IV SCH (02:17)
[2018-03-20] MEDS: Piperacillin/Tazobactam 3.375 GM in Sodium Chloride 0.9% 100 ML IVPB SCH ×5 (02:19→23:06)
[2018-03-20 06:18] LABS: #Eosinphils 0.2 thou/uL (0.0-0.7); #Lymphocytes 1.5 thou/uL (1.20-3.40); #Monocytes 0.5 thou/uL (0.11-0.59); #Neutrophils 8.6 thou/uL (1.40-6.50); %Basophils 0.1 % (0.0-1.0); %Eosinophils 1.9 % (0.0-10.0); %Monocytes 4.9 % (0.0-10.0); %Neutrophils 79.1 % (42.0-75.0); Mean Corpuscular HGB CONC 34.9 g/dL (32.0-36.0); Mean Corpuscular Volume 88.8 fL (78.0-98.0); Mean Platelet Volume 6.2 fL (7.4-10.4); Platelet Count 259 thou/uL (130-400); RBC Distribution Width 12.1 % (11.5-14.5); Red Blood Cell (RBC) Count 2.58 mill/uL (4.70-6.10); White Blood Cell (WBC) Count 10.9 thou/uL (4.8-10.8)
[2018-03-20 06:34] LABS: Phosphorus 2.4 mg/dL (2.3-4.7)
[2018-03-20 06:36] LABS: Anion Gap 9 mmol/L (10-20); BUN (Urea Nitrogen) 5 mg/dL (8.9-20.6); Calc. Creatinine Clearance 210 mL/min (70-130); Calcium 8.1 mg/dL (7.8-10.44); Carbon Dioxide 24 mmol/L (22-29); Chloride 114 mmol/L (98-107); Estimated GFR-MDRD Greater than 90; Glucose 141 mg/dL (70-105); Magnesium 1.7 mg/dL (1.6-2.6); Potassium 3.5 mmol/L (3.5-5.1); Sodium 143 mmol/L (136-145)
[2018-03-20] MEDS: fentaNYL Citrate/PF 2,000 MCG in Sodium Chloride 0.9% 60 ML IV SCH (07:20)
--- NOTE | 2018-03-20 08:28 | RAD ---
RADIOGRAPH CHEST 1 VIEW: Date: 03/20/18 Time: 0521 hours HISTORY: 32-year-old male in respiratory failure. COMPARISON: 03/18/18 at 0510 hours. FINDINGS: Endotracheal tube distal tip is in the upper thoracic trachea, 6 cm superior to the lacey. The right subclavian central line remains. NG tube has been placed. There has been interval development of sev ere opacification/consolidation of the right lower lung zone, with complete silhouetting of the right hemidiaphragm, and interval development of dense alveolar infiltrates throughout the right upper lob e. There has been interval development of alveolar densities in the left central lung and left base, silhouetting the left hemidiaphragm. No pneumothorax is identified. IMPRESSION: 1. Severe interval worsening of aeration of the right lung, with air space densities now throughout the right lung. 2. Worsening of aeration of the left central lung and base. 3. Endotracheal tube at upper thoracic trachea. JALEN [] POS: [facility]
[2018-03-20 08:43] LABS: Actual Bicarbonate (HCO3a) 22.6 mEq/L (22-28); Base Excess (BEa) -0.2 mEq/L (-2.0 to +3.0); CO2 Tension 29.9 mmHg (35.0-45.0); Calcium, Ionized 1.08 mmol/L (1.12-1.30); Carboxyhemoglobin (COHb) 0.3 gm% (0.0-3.0); Hemoglobin (Hb) 8.9 g/dL (14.0-18.0); O2 Tension (PaO2) 77.1 mmHg (80.0-100.0); Potassium - ABG Lab 3.51 mmol/L (3.70-5.30)
[2018-03-20 08:46] LABS: Puncture Site RBA
[2018-03-20 08:47] LABS: ALV-art Gradient 313.325 (0-20)
[2018-03-20] MEDS ORDERED: Vancomycin HCl 1 GM in Premix Bag 1 BAG IVPB SCH (09:00)
[2018-03-20] MEDS: Famotidine/PF 20 mg/2ml Vial SLOW IVP SCH ×2 (09:05→22:18)
[2018-03-20] MEDS: Propofol 1,000 MG/100 ML VIAL IV PRN ×3 (09:05→17:58)
[2018-03-20] MEDS: Senokot S 8.6-50 MG TAB PO SCH ×2 (09:05→22:19)
[2018-03-20] MEDS: Thiamine HCl 200 MG/2 ML VIAL SLOW IVP SCH (09:06)
[2018-03-20] MEDS: Polyethylene Glycol 3350 17 GM Packet PO SCH (09:06)
--- NOTE | 2018-03-20 10:30 | PRG ---
DATE OF SERVICE: 03/20/2018 SUBJECTIVE: Mr. Trivedi is seen at the bedside today. No significant neuro improvement. Disha Covarrubias discussed with family earlier the significance of his head injury to the brother via the pad extraction tender. OBJECTIVE: VITAL SIGNS: Blood pressure is 115/70, pulse 103. He is afebrile today. GENERAL: Ibarra urine output yesterday was 5750. CHEST: Coarse breath sounds on the right. HEART: Increased rate, regular rhythm. ABDOMEN: Slightly distended, nontender. LABORATORY DATA: White cell count is 10, hemoglobin 8, platelet count is 259. Sodium 143, potassium 3.5, creatinine 0.74. ASSESSMENT: Severe traumatic brain injury. Minimal neuro improvement. PLAN: He will need trach, PEG next week. Job ID: [id number]
--- NOTE | 2018-03-20 11:58 | PRG ---
DATE OF SERVICE: 03/20/2018 This is a postoperative day 3 from left-sided skull fracture repair and craniotomy for epidural, subdural, and intraparenchymal contusion evacuation. He neurologically localizes in all 4 extremities and prefers to keep his eyes closed. Obviously, he has craniofacial edema. There is concerns in regards to his lungs for pneumonia. He is being treated for this as well. His drain output appears to be getting more serous in nature, but still with a strong sanguinous component. We will leave this in place and likely plan for removal tomorrow. He does have some drainage from his left nostril and as such we will send this for beta-2 transferrin. Job ID: [id number]
[2018-03-20] MEDS ORDERED: Potassium Chloride 40 MEQ in Premix Bag 1 BAG IVPB SCH (12:30)
[2018-03-20] MEDS ORDERED: Magnesium Sulfate 2 GM in Sodium Chloride 0.9% 100 ML IVPB SCH (12:30)
[2018-03-20] MEDS ORDERED: Magnesium 2 GM/50 ML 2 GM in Premix Bag 1 BAG IVPB SCH (13:00)
--- NOTE | 2018-03-20 13:43 | CON ---
DATE OF CONSULTATION: 03/20/2018 HISTORY OF PRESENT ILLNESS: This is a 32-year-old male, status post fall from a ladder, reportedly 18 feet, resulting in head trauma. On initial evaluation at [facility], epidural and subdural hematoma was identified. The patient was transferred emergently to [facility], where a cranial decompression was performed by Neurosurgery on 03/17/2018, as well as repair of calvarial bone fractures. Followup CT of the face revealed multiple facial fractures, for which Oral Surgery was consulted. PAST MEDICAL HISTORY: Unknown. MEDICATIONS: Unknown. ALLERGIES: UNKNOWN. PAST SURGICAL HISTORY: Unknown. SOCIAL HISTORY: Unknown. REVIEW OF SYSTEMS: Review of symptoms: Unable to be obtained due to the patient's intubation and sedation. PHYSICAL EXAMINATION: VITAL SIGNS: Stable, afebrile. GENERAL: The patient is intubated and sedated in ICU bed, moves all extremities on stimulation, does not follow commands. HEENT: Head wrap is in place. There is a very mild left periorbital edema. Mild left exophthalmos. Left subconjunctival hemorrhage and chemosis present. Pupils appear nonresponsive. There is a palpable depression along the left lateral superior orbital rim and zygomaticofrontal suture. Nasal bridge is symmetrical. No palpable bony crepitus. No active epistaxis on manipulation. Right inferior and superior orbital rims are intact. Limited intraoral exam secondary to endotracheal tube. LABORATORY DATA: CT of the face reveals minimally displaced left orbital roof fractures, medial displacement of the left lamina papyracea, 3- to 4-mm inferior displacement of the left inferior orbital rim, 2- to 3-mm displacement of the left zygomaticofrontal suture, 2- to 3-mm displacement of the left zygomatic arch. There is a right deviation of the posterior nasal septum. Minimally displaced fractures of the right medial maxillary sinus wall and left anterior, posterior, and medial maxillary sinus draper. There is displacement of the right frontal process of the maxilla, but correlating with the clinical exam, there is a question if this is acute versus chronic, as well as sphenoid fractures. ASSESSMENT: A 32-year-old male, status post fall from a ladder with multiple facial fractures. PLAN: There is minimal displacement of the previously listed facial fractures, which will unlikely lead to any functional problems. No plan for surgical intervention from Oral Surgery standpoint. When the patient is extubated and neuro status improves, recommend sinus precautions due to left orbital fractures including no vigorous nose blowing. Cough and sneeze with mouth open if required. The patient has been appropriately covered by [facility], and the patient can follow up in Oral Surgery Clinic should his neurologic status improve after discharge. Job ID: [id number]
--- NOTE | 2018-03-20 20:24 | PRG ---
DATE OF SERVICE: 03/20/2018 SUBJECTIVE: Mr. Yun remains unresponsive. He may have CSF running out of his nose. He continues to have an intracranial drain. OBJECTIVE: VITAL SIGNS: His blood pressure is 108/67, heart rate is 115, respiratory rate is 18, oximetries in the room air 90s. Remains mechanically ventilated. HEENT: His pupils are asymmetric and minimally reactive. LUNGS: Remarkable for coarse equal breath sounds. HEART: Regular rhythm. ABDOMEN: Soft. EXTREMITIES: Without significant edema. LABORATORY DATA: Chest radiograph shows alveolar infiltrate on the right and at the left base. Intake and output actually was negative today. IMPRESSION: 1. Status post fall with skull fracture. 2. Progressive infiltrates consistent with pneumonia. He remains on Zosyn and vancomycin, which I would think would be adequate coverage. Vancomycin appears to have been started today. He continues to progress. We will lavage the lower lobe or middle lobe and see if there are any pathogens growing. His prognosis remains quite guarded. Critical care time, 30 minutes. He is certainly not weanable. At this point in time, his pH is 7.5, CO2 of 29, PO2 of 77. With progressive radiographic abnormalities, he will likely be mechanically ventilated for a while. Job ID: [id number] [facility]
[2018-03-20] MEDS: Lorazepam 2 MG/ML VIAL SLOW IVP PRN (22:16)
[2018-03-21] MEDS: Lorazepam 2 MG/ML VIAL SLOW IVP PRN ×4 (00:19→23:38)
[2018-03-21] MEDS: fentaNYL Citrate/PF 2,000 MCG in Sodium Chloride 0.9% 60 ML IV SCH ×2 (03:09→21:29)
[2018-03-21] MEDS: Propofol 1,000 MG/100 ML VIAL IV PRN ×6 (03:16→22:25)
[2018-03-21] MEDS: Piperacillin/Tazobactam 3.375 GM in Sodium Chloride 0.9% 100 ML IVPB SCH ×4 (05:25→23:30)
[2018-03-21 07:12] LABS: #Eosinphils 0.2 thou/uL (0.0-0.7); #Lymphocytes 1.9 thou/uL (1.20-3.40); #Monocytes 0.7 thou/uL (0.11-0.59); #Neutrophils 7.6 thou/uL (1.40-6.50); %Basophils 0.2 % (0.0-1.0); %Eosinophils 1.6 % (0.0-10.0); %Lymphocytes 18.4 % (21.0-51.0); %Monocytes 6.4 % (0.0-10.0); %Neutrophils 73.4 % (42.0-75.0); Hemoglobin 7.2 g/dL (14.0-18.0); Mean Corpuscular HGB CONC 34.1 g/dL (32.0-36.0); Mean Corpuscular Hemoglobin 30.6 pg (27.0-31.0); Mean Corpuscular Volume 89.7 fL (78.0-98.0); Mean Platelet Volume 6.3 fL (7.4-10.4); Platelet Count 314 thou/uL (130-400); RBC Distribution Width 12.3 % (11.5-14.5); Red Blood Cell (RBC) Count 2.35 mill/uL (4.70-6.10); White Blood Cell (WBC) Count 10.3 thou/uL (4.8-10.8)
[2018-03-21 07:30] LABS: Anion Gap 10 mmol/L (10-20); BUN (Urea Nitrogen) 9 mg/dL (8.9-20.6); Calc. Creatinine Clearance 177 mL/min (70-130); Calcium 8.1 mg/dL (7.8-10.44); Carbon Dioxide 23 mmol/L (22-29); Chloride 114 mmol/L (98-107); Estimated GFR-MDRD Greater than 90; Glucose 118 mg/dL (70-105); Potassium 3.4 mmol/L (3.5-5.1); Sodium 144 mmol/L (136-145)
[2018-03-21 07:46] LABS: Vancomycin, Trough 28.3 ug/mL
[2018-03-21] MEDS: Potassium Chloride 40 MEQ in Premix Bag 1 BAG IVPB PRN (07:55)
[2018-03-21] MEDS: Famotidine/PF 20 mg/2ml Vial SLOW IVP SCH ×2 (08:57→20:18)
[2018-03-21] MEDS: Polyethylene Glycol 3350 17 GM Packet PO SCH (08:58)
[2018-03-21] MEDS: Senokot S 8.6-50 MG TAB PO SCH ×2 (08:58→20:19)
[2018-03-21] MEDS: Thiamine HCl 200 MG/2 ML VIAL SLOW IVP SCH (09:00)
[2018-03-21 09:19] LABS: Base Excess (BEa) -0.6 mEq/L (-2.0 to +3.0); CO2 Tension 32.8 mmHg (35.0-45.0); Calcium, Ionized 1.07 mmol/L (1.12-1.30); Carboxyhemoglobin (COHb) 1.7 gm% (0.0-3.0); Hemoglobin (Hb) 6.8 g/dL (14.0-18.0); O2 Tension (PaO2) 95.1 mmHg (80.0-100.0); Potassium - ABG Lab 3.57 mmol/L (3.70-5.30); pH, Arterial 7.46 (7.35-7.45)
[2018-03-21 09:27] LABS: Puncture Site RBA
--- NOTE | 2018-03-21 10:04 | RAD ---
SINGLE VIEW OF THE CHEST: COMPARISON: 03/20/2018. HISTORY: Ventilated patient with respiratory failure. FINDINGS: A single view of the chest shows a cardiomediastinal silhouette which is upper limits of normal in si ze. The lines and tubes are unchanged in position. There appear to be moderate bilateral pleural ef fusions. IMPRESSION: Stable exam. POS: [facility]
--- NOTE | 2018-03-21 10:21 | PRG ---
DATE OF SERVICE: 03/21/2018 SUBJECTIVE: No significant change today. The patient is agitated at times. Had a discussion at the bedside with family about tracheostomy and feeding tube placement. The brother gives consent. OBJECTIVE: The patient's T-max is 101.6, pulse is 100, blood pressure 134/80. Urine output of 920 overnight. Tolerating tube feeds. Chest; clear. Heart; regular rate. Abdomen is soft and nondistended. LABORATORY DATA: White blood cell count is 10, hemoglobin is 7, platelet count is 314, creatinine 0.88, and glucose 118. ASSESSMENT: Traumatic brain injury. PLAN: Tracheostomy and gastrostomy tube placement (PEG tomorrow or Thursday). Discussed with brother the risks, benefits, alternatives, and he does give consent. Job ID: [id number]
[2018-03-21] MEDS: Lactated Ringer's 1,000 ML IV SCH (11:39)
--- NOTE | 2018-03-21 11:45 | PRG ---
DATE OF SERVICE: 03/21/2018 SUBJECTIVE: Mr. Trivedi is demonstrating slow, but steady improvement. We have removed his drain. His pupil is starting to react in the left side. His wound is healing well. He spontaneously moves all four extremities. The plan is for tracheostomy and PEG tube placement tomorrow and perhaps filter placement this week. Job ID: [id number]
[2018-03-21] MEDS: Vecuronium 10 MG VIAL IV PRN ×2 (13:45→23:38)
[2018-03-21] MEDS: Acetaminophen 1,000 MG in Premix Bag 1 BAG IVPB PRN ×2 (13:45→21:58)
--- NOTE | 2018-03-21 15:51 | PRG ---
DATE OF SERVICE: 03/21/2018 SUBJECTIVE: Mr. Yun is unchanged. He has no neurological improvement. OBJECTIVE: VITAL SIGNS: Respiratory rate 17, heart rate 100, blood pressure 139/79, temperature is 97%. LUNGS: Remarkable for rhonchi. HEART: Regular rhythm. ABDOMEN: Soft and nontender without guarding. EXTREMITIES: Without edema. LABORATORY DATA: Intake and output positive 3548. White count 10.3, hemoglobin 7.2, platelets count 14,000. Sodium 144, potassium 3.4, chloride 114, bicarb 22, BUN 9, creatinine 0.88. Chest radiograph is unchanged. IMPRESSION: Traumatic brain injury with skull fracture, possibly a basal skull fracture with CSF draining out of his nose. He does have spontaneous 4 extremities movement, but is not following commands yet. PLAN: Schedule for a trach and a PEG. I suspect he will wean from mechanical ventilation once these procedures are performed. Critical care time 30 minutes. There are no acid-base abnormalities at this time. PH today is 7.46, CO2 of 32 , PO2 of 95. Antibiotics have been adjusted. Critical care time is 35 minutes. Job ID: [id number] [facility]
[2018-03-21] MEDS: Vancomycin HCl 1.75 GM in Sodium Chloride 0.9% 500 ML IVPB SCH (16:34)
[2018-03-22] MEDS: Vancomycin HCl 1.75 GM in Sodium Chloride 0.9% 500 ML IVPB SCH ×3 (00:43→17:18)
[2018-03-22] MEDS: Propofol 1,000 MG/100 ML VIAL IV PRN ×5 (02:55→20:04)
[2018-03-22] MEDS: Acetaminophen 1,000 MG in Premix Bag 1 BAG IVPB PRN ×2 (04:06→11:51)
[2018-03-22] MEDS: Lorazepam 2 MG/ML VIAL SLOW IVP PRN ×3 (04:06→20:03)
[2018-03-22 04:47] LABS: #Eosinphils 0.2 thou/uL (0.0-0.7); #Lymphocytes 1.8 thou/uL (1.20-3.40); #Monocytes 0.8 thou/uL (0.11-0.59); #Neutrophils 7.5 thou/uL (1.40-6.50); %Basophils 0.2 % (0.0-1.0); %Eosinophils 1.5 % (0.0-10.0); %Lymphocytes 17.7 % (21.0-51.0); %Monocytes 8.1 % (0.0-10.0); %Neutrophils 72.5 % (42.0-75.0); Hemoglobin 7.4 g/dL (14.0-18.0); Mean Corpuscular HGB CONC 34.3 g/dL (32.0-36.0); Mean Corpuscular Hemoglobin 30.7 pg (27.0-31.0); Mean Corpuscular Volume 89.5 fL (78.0-98.0); Mean Platelet Volume 6.5 fL (7.4-10.4); Platelet Count 381 thou/uL (130-400); RBC Distribution Width 12.4 % (11.5-14.5); White Blood Cell (WBC) Count 10.4 thou/uL (4.8-10.8)
[2018-03-22 04:56] LABS: Anion Gap 13 mmol/L (10-20); BUN (Urea Nitrogen) 9 mg/dL (8.9-20.6); Calc. Creatinine Clearance 160 mL/min (70-130); Calcium 8.3 mg/dL (7.8-10.44); Carbon Dioxide 21 mmol/L (22-29); Chloride 115 mmol/L (98-107); Estimated GFR-MDRD 90; Glucose 100 mg/dL (70-105); Potassium 3.5 mmol/L (3.5-5.1); Sodium 145 mmol/L (136-145)
[2018-03-22] MEDS: Potassium Chloride 40 MEQ in Premix Bag 1 BAG IVPB PRN (05:16)
[2018-03-22] MEDS: Piperacillin/Tazobactam 3.375 GM in Sodium Chloride 0.9% 100 ML IVPB SCH ×4 (05:16→23:41)
[2018-03-22 07:41] LABS: Actual Bicarbonate (HCO3a) 21.7 mEq/L (22-28); Base Excess (BEa) -1.9 mEq/L (-2.0 to +3.0); CO2 Tension 32.3 mmHg (35.0-45.0); Calcium, Ionized 1.09 mmol/L (1.12-1.30); Carboxyhemoglobin (COHb) 1.1 gm% (0.0-3.0); Hemoglobin (Hb) 8.1 g/dL (14.0-18.0); Potassium - ABG Lab 3.77 mmol/L (3.70-5.30); pH, Arterial 7.45 (7.35-7.45)
[2018-03-22] MEDS ORDERED: Potassium Chloride 40 MEQ in Premix Bag 1 BAG IVPB SCH (08:00)
[2018-03-22] MEDS ORDERED: Furosemide 40 MG/4 ML VIAL SLOW IVP SCH (08:00)
[2018-03-22] MEDS: Vecuronium 10 MG VIAL IV PRN ×4 (08:01→22:44)
[2018-03-22 08:02] LABS: O2 Tension (PaO2) 38.2 mmHg (80.0-100.0)
[2018-03-22 08:03] LABS: Puncture Site RBRACH
[2018-03-22 08:04] LABS: ALV-art Gradient 277.925 (0-20)
[2018-03-22] MEDS: Famotidine/PF 20 mg/2ml Vial SLOW IVP SCH ×2 (08:48→20:03)
[2018-03-22] MEDS: Thiamine HCl 200 MG/2 ML VIAL SLOW IVP SCH (08:48)
[2018-03-22] MEDS: Senokot S 8.6-50 MG TAB PO SCH (08:57)
[2018-03-22] MEDS: Polyethylene Glycol 3350 17 GM Packet PO SCH (08:57)
--- NOTE | 2018-03-22 08:57 | PRG ---
DATE OF SERVICE: 03/22/2018 PULMONARY/CRITICAL CARE PROGRESS NOTE SUBJECTIVE: The patient remains intubated, on mechanical ventilation. He constantly tries to fight the ventilator. He does not wake up and follow commands. OBJECTIVE: VITAL SIGNS: On physical exam, his temperature is 100.3 with a T-max of 102.3, pulse 95, blood pressure 119/71. A 24-hour intake 5646 mL, output 2970 mL. HEENT: Remarkable for periorbital edema. He has a slightly reactive right pupil. Oropharynx has ET tube in place. NECK: Without adenopathy or JVD. LUNGS: Coarse breath sounds bilaterally. CARDIOVASCULAR: S1 and S2 regular. ABDOMEN: Soft, nontender. EXTREMITIES: No edema. LABORATORY DATA: White blood cell count 10.4, hemoglobin 7.4, hematocrit 21.5, platelet count 381. His blood gas was venous. His sodium was 145, potassium 3.5, chloride 115, CO2 of 21, BUN 9, creatinine 0.9, glucose 100. His chest x-ray shows dense infiltrative changes on the right, which likely has some component of pulmonary edema versus pulmonary contusion versus pneumonia. ASSESSMENT: 1. Status post fall with traumatic brain injury. 2. Pulmonary contusion versus pneumonia versus pulmonary edema. 3. Persistent encephalopathic tendencies. PLAN: 1. In my opinion, the patient is not weanable. I have adjusted his ventilator settings. 2. Agree with trach and PEG placement. 3. I would not recommend IVC filter placement as they are associated with increased mortality and should not be put in unless all other measures fail. Pneumatic compression is probably the best way to handle things at this time. 4. We will discuss with the Trauma Team. Job ID: [id number]
--- NOTE | 2018-03-22 09:01 | RAD ---
CHEST 1 VIEW: Date: 03/22/18 INDICATION: History of intubation. COMPARISON: Prior exam dated 03/21/18. FINDINGS: There is a right subclavian central venous catheter. ET tube and gastric catheter appear similar appe aring. Patient is slightly rotated, limiting evaluation of the cardiomediastinal silhouette. There is some lucency involving the right lung apex with presence of lung markings likely reflective of some residual airway of right lung. The majority of the right lung demonstrates diffuse opacity suspicious for changes of either pneumonia or edema. There are tiny bilateral pleural effusions that persist. P atchy opacity remains within the left lung base and may reflect atelectasis or pneumonia. Osseous str uctures are similar appearing. IMPRESSION: 1. Some residual air space opacity within the right lung suspicious for pneumonia or possibly edema. Hemorrhage could also have a similar appearance. Small bilateral pleural effusions persist. 2. Patchy opacity in the left lung base persists and may reflect atelectasis or additional focus of pneumonia. Continued follow-up is recommended. 3. Tubes and lines are stable. POS: [facility]
--- NOTE | 2018-03-22 10:10 | PRG ---
DATE OF SERVICE: 03/22/2018 SUBJECTIVE: Mr. Trivedi does not follow commands. OBJECTIVE: VITAL SIGNS: He is afebrile. He is mildly tachycardic, but his blood pressure is stable. Urine output is 1500 overnight. GASTROINTESTINAL: He has had multiple loose bowel movements. Abdomen is soft, nontender. ASSESSMENT: Traumatic brain injury. PLAN: Trach and PEG tomorrow. Hold off on the laxatives. Job ID: [id number]
--- NOTE | 2018-03-22 13:34 | PRG ---
DATE OF SERVICE: 03/22/2018 SUBJECTIVE: Mr. Yun is now postoperative day #5, having undergone left-sided craniotomy for epidural hematoma evacuation. The patient's drain was removed yesterday. He continues to have his baseline neurologic exam and that he moves nothing to command at this time, but all 4 extremities spontaneously. According to nursing reports, he had some agitation and required propofol bolus prior to my exam. When I am in the room, he is not currently doing anything in regard to movement. However, again the nursing staff notes that he is continuing to move all 4 extremities, although may be slightly slower in the right upper extremity. He remains with waxing and waning of third nerve palsy and that his pupils are nonreactive. The left is 5 to 6 mm where the right is 2 to 3 mm. His incision is uncovered and there is no drainage from the incision. His scalp is with some swelling, but there is no tension on the incision. He remains on Keppra and his sodium is stable at 145. Urine output has been roughly 100 mL/hour. Apparently, at this time, suspicions for diabetes insipidus are low. His hemoglobin is 7.2 and our trauma colleagues have reported that they will initiate blood transfusion to improve this. Otherwise, the patient remains neurologically stable. Dr. Coreas was in the room at the time managing the patient's ventilator settings. Plan is also for trach and PEG placement tomorrow. We will continue to follow the patient. Please call with any changes in the patient's neurological status. Job ID: [id number]
[2018-03-22] MEDS: fentaNYL Citrate/PF 2,000 MCG in Sodium Chloride 0.9% 60 ML IV SCH (14:18)
[2018-03-22] MEDS: Acetaminophen 500 MG TAB PER TUBE PRN (20:09)
[2018-03-23 01:15] LABS: Vancomycin, Trough 33.1 ug/mL
[2018-03-23] MEDS: Propofol 1,000 MG/100 ML VIAL IV PRN ×6 (01:22→23:22)
[2018-03-23] MEDS: fentaNYL Citrate/PF 2,000 MCG in Sodium Chloride 0.9% 60 ML IV SCH ×2 (01:23→21:37)
[2018-03-23] MEDS: Vancomycin HCl 1.75 GM in Sodium Chloride 0.9% 500 ML IVPB SCH (01:38)
[2018-03-23] MEDS: Acetaminophen 500 MG TAB PER TUBE PRN ×2 (04:22→13:16)
[2018-03-23 04:30] LABS: #Eosinphils 0.2 thou/uL (0.0-0.7); #Lymphocytes 1.9 thou/uL (1.20-3.40); #Monocytes 0.8 thou/uL (0.11-0.59); #Neutrophils 9.6 thou/uL (1.40-6.50); %Eosinophils 1.3 % (0.0-10.0); %Monocytes 6.4 % (0.0-10.0); %Neutrophils 77.3 % (42.0-75.0); Mean Corpuscular Hemoglobin 30.5 pg (27.0-31.0); Mean Corpuscular Volume 89.7 fL (78.0-98.0); Mean Platelet Volume 6.7 fL (7.4-10.4); Platelet Count 465 thou/uL (130-400); RBC Distribution Width 12.3 % (11.5-14.5); Red Blood Cell (RBC) Count 2.63 mill/uL (4.70-6.10); White Blood Cell (WBC) Count 12.4 thou/uL (4.8-10.8)
[2018-03-23 04:47] LABS: Anion Gap 16 mmol/L (10-20); BUN (Urea Nitrogen) 15 mg/dL (8.9-20.6); Calc. Creatinine Clearance 115 mL/min (70-130); Calcium 8.5 mg/dL (7.8-10.44); Carbon Dioxide 19 mmol/L (22-29); Chloride 115 mmol/L (98-107); Estimated GFR-MDRD 63; Glucose 156 mg/dL (70-105); Potassium 3.6 mmol/L (3.5-5.1); Sodium 146 mmol/L (136-145)
[2018-03-23] MEDS: Piperacillin/Tazobactam 3.375 GM in Sodium Chloride 0.9% 100 ML IVPB SCH (05:09)
--- NOTE | 2018-03-23 08:50 | RAD ---
CHEST ONE VIEW: History: Ventilated patient. Comparison: Prior day. FINDINGS: Patient is intubated with endotracheal tube tip at the level of the clavicles. The enteric tube tip i s poorly seen. Layering right effusion. Small left effusion. Multifocal airspace opacity is similar in the right lauren g predominately, as well as few opacities in the left lower lobe. Central venous catheter is similar. IMPRESSION: Similar examination of the chest. POS: [facility]
--- NOTE | 2018-03-23 09:11 | PRG ---
DATE OF SERVICE: 03/23/2018 TIME SPENT: 35 minutes critical time. SUBJECTIVE: This patient remains intubated on mechanical ventilation. When the sedation is removed, he becomes very desynchronous to ventilator and has O2 desaturation. OBJECTIVE: VITAL SIGNS: His maximum temperature is 103.4, currently 99.7, pulse 111, blood pressure 115/76, O2 saturation has been running between 88% and 100%, 24-hour intake 4033, output 3850. HEENT: Poorly reactive pupils. Extensive periorbital edema. NECK: No adenopathy or JVD. LUNGS: Coarse breath sounds. Some crackles in the right base. CARDIAC: S1, S2 regular. ABDOMEN: Soft and nontender. EXTREMITIES: Generalized edema throughout. LABORATORY DATA: White blood cell count 12.4, hemoglobin 8, hematocrit 23.6, and platelet count 465. ABG result pending. Sodium 146, potassium 3.6, chloride 115, CO2 of 19, BUN 15, creatinine 1.3, glucose 156. IMAGING STUDIES: His x-ray shows extensive changes in the right base either indicative of pneumonia, effusion, or pulmonary contusion. ASSESSMENT: 1. Status post traumatic brain injury. 2. Acute respiratory failure requiring mechanical ventilation. 3. Persistent fever, which may be secondary to his central nervous system issues. 4. Profound fluid overload. RECOMMENDATIONS: 1. The patient will be re-cultured. 2. He is not weanable at this time. 3. Continue enteral tube feeds. 4. Needs a trach and PEG. Job ID: [id number]
[2018-03-23] MEDS: Thiamine HCl 200 MG/2 ML VIAL SLOW IVP SCH (09:17)
[2018-03-23] MEDS: Famotidine/PF 20 mg/2ml Vial SLOW IVP SCH ×2 (09:17→19:49)
[2018-03-23] MEDS: Lorazepam 2 MG/ML VIAL SLOW IVP PRN ×5 (10:27→23:32)
--- NOTE | 2018-03-23 10:27 | PRG ---
DATE OF SERVICE: 03/23/2018 SUBJECTIVE: Mr. Trivedi is 6 days into his hospitalization for an open skull fracture on the left side with injury to Broca area and associated subdural and epidural hematoma following evacuation while his postoperative CT demonstrates improvement structurally. He has had an exam when his sedation is weaned. He is quite agitated. Moves all 4 extremities. I have met along with Dr. Coreas and Dr. Prosper Torres, physician commercial lines assistant colleague and we have all met with the brother and discussed the fact that the patient could make a significantly improved recovery and we would advocate for tracheostomy and PEG tube placement to foster this. Job ID: [id number]
[2018-03-23 10:38] LABS: Actual Bicarbonate (HCO3a) 18.5 mEq/L (22-28); Analyzer IN Cardio OR; Base Excess (BEa) -6.5 mEq/L (-2.0 to +3.0); CO2 Tension 35.3 mmHg (35.0-45.0); Calcium, Ionized 1.08 mmol/L (1.12-1.30); Carboxyhemoglobin (COHb) 0.5 gm% (0.0-3.0); Hemoglobin (Hb) 12.9 g/dL (14.0-18.0); O2 Tension (PaO2) 164.6 mmHg (80.0-100.0); Potassium - ABG Lab 3.11 mmol/L (3.70-5.30); pH, Arterial 7.34 (7.35-7.45)
[2018-03-23] MEDS: Piperacillin/Tazobactam 4.5 GM in Sodium Chloride 0.9% 100 ML IVPB SCH ×3 (11:55→23:56)
[2018-03-23 12:21] LABS: Puncture Site ALINE
[2018-03-23 21:47] LABS: Vancomycin, Random 7.7 ug/mL (See Comment)
[2018-03-23] MEDS ORDERED: Vancomycin HCl 1.5 GM in Sodium Chloride 0.9% 250 ML 300 ML IVPB SCH ×2 (22:00→23:59)
[2018-03-24] MEDS: Propofol 1,000 MG/100 ML VIAL IV PRN ×2 (04:05→07:07)
[2018-03-24 05:12] LABS: #Eosinphils 0.4 thou/uL (0.0-0.7); #Lymphocytes 1.6 thou/uL (1.20-3.40); #Monocytes 0.7 thou/uL (0.11-0.59); #Neutrophils 9.5 thou/uL (1.40-6.50); %Eosinophils 2.9 % (0.0-10.0); %Lymphocytes 13.3 % (21.0-51.0); %Monocytes 5.5 % (0.0-10.0); %Neutrophils 78.3 % (42.0-75.0); Hemoglobin 6.3 g/dL (14.0-18.0); Mean Corpuscular Volume 90.8 fL (78.0-98.0); Mean Platelet Volume 7.9 fL (7.4-10.4); Platelet Count 388 thou/uL (130-400); RBC Distribution Width 12.6 % (11.5-14.5); Red Blood Cell (RBC) Count 2.11 mill/uL (4.70-6.10); White Blood Cell (WBC) Count 12.2 thou/uL (4.8-10.8)
[2018-03-24 05:24] LABS: Anion Gap 14 mmol/L (10-20); BUN (Urea Nitrogen) 20 mg/dL (8.9-20.6); Calc. Creatinine Clearance 132 mL/min (70-130); Calcium 8.3 mg/dL (7.8-10.44); Carbon Dioxide 20 mmol/L (22-29); Chloride 115 mmol/L (98-107); Estimated GFR-MDRD 73; Glucose 120 mg/dL (70-105); Potassium 3.5 mmol/L (3.5-5.1); Sodium 145 mmol/L (136-145)
[2018-03-24] MEDS: Piperacillin/Tazobactam 4.5 GM in Sodium Chloride 0.9% 100 ML IVPB SCH ×4 (06:16→23:30)
[2018-03-24 06:18] LABS: Hemoglobin 6.4 g/dL (14.0-18.0)
[2018-03-24 07:52] LABS: Actual Bicarbonate (HCO3a) 21.7 mEq/L (22-28); Base Excess (BEa) -1.5 mEq/L (-2.0 to +3.0); CO2 Tension 29.4 mmHg (35.0-45.0); Calcium, Ionized 1.11 mmol/L (1.12-1.30); Carboxyhemoglobin (COHb) 0.9 gm% (0.0-3.0); Hemoglobin (Hb) 7.2 g/dL (14.0-18.0); O2 Tension (PaO2) 66.1 mmHg (80.0-100.0); pH, Arterial 7.49 (7.35-7.45)
[2018-03-24 07:53] LABS: Puncture Site RRA
--- NOTE | 2018-03-24 08:43 | RAD ---
PORTABLE SEMIUPRIGHT FRONTAL CHEST RADIOGRAPH: 03/24/2018 HISTORY: Ventilated patient. COMPARISON: 03/23/2018 FINDINGS: Endotracheal tube terminates at the level of the clavicular heads. Nasogastric tube extends into the epigastric region. Right subclavian central venous catheter is present, distal tip overlying the ex pected location of the right atrium. No pneumothorax is seen. There is dense opacity in the right perihilar region and involving the inferior half of the right hem ithorax, suggesting a combination of air space disease, volume loss, and/or pleural fluid. Patchy re ticulonodular density noted in the right perihilar region and in the left lung base, which may signif y infiltrate, associated with infectious pneumonitis or aspiration. Aeration has slightly improved w ithin the right upper lobe when compared to the prior exam. IMPRESSION: 1. Lines and tubes as above. 2. Patchy areas of opacity in the right upper lobe and left lung base with dense pleural and parench ymal opacity within the right base, as above. POS: [facility]
--- NOTE | 2018-03-24 09:01 | PRG ---
DATE OF SERVICE: 03/24/2018 TIME SPENT: 35 minutes critical time. SUBJECTIVE: The patient is about the same as he has been. OBJECTIVE: VITAL SIGNS: Temperature is 99.5 with a T-max of 101, pulse is 107, blood pressure 107/67, currently requiring propofol for sedation. 24-hour intake 3561, output 1785. HEENT: Left pupil is 5 mm and right pupil is 3 mm. Right pupil, reactive; left pupil, not. CARDIOVASCULAR: S1 and S2 regular. LUNGS: Slightly diminished breath sounds at right base. ABDOMEN: Soft and nontender. EXTREMITIES: No edema. LABORATORY DATA: Sodium 145, potassium 3.5, chloride 115, CO2 of 20, BUN 20, creatinine 1.1, glucose 120. White blood cell count 12.2, hemoglobin 6.3, hematocrit 19.1, and platelet count 388. DIAGNOSTIC DATA: Chest x-ray shows right lower lobe infiltrate versus effusion. ASSESSMENT: 1. Status post traumatic fall. 2. Klebsiella pneumonia for tracheal aspirate. 3. Acute respiratory failure, requiring mechanical ventilation in bilevel settings. 4. Extensive traumatic brain injury. PLAN: 1. Trach and PEG were planned for later this week. 2. Given the duration that the patient has been on propofol, I will go ahead and stop that and place him on a Versed drip for sedation. We will not attempt to wean the Versed drip until after the tracheostomy is placed. 3. Continue the Zosyn, but discontinue the vancomycin since we do not have any Staph growing from cultures. Job ID: [id number]
[2018-03-24] MEDS: Thiamine HCl 200 MG/2 ML VIAL SLOW IVP SCH (09:07)
[2018-03-24] MEDS: Famotidine/PF 20 mg/2ml Vial SLOW IVP SCH ×2 (09:08→23:26)
[2018-03-24 09:11] LABS: Actual Bicarbonate (HCO3a) 17.5 mEq/L (22-28); Analyzer IN Cardio OR; Base Excess (BEa) -8.6 mEq/L (-2.0 to +3.0); CO2 Tension 38.2 mmHg (35.0-45.0); Calcium, Ionized 0.95 mmol/L (1.12-1.30); Carboxyhemoglobin (COHb) 0.3 gm% (0.0-3.0); Hemoglobin (Hb) 10.6 g/dL (14.0-18.0); O2 Tension (PaO2) 114.7 mmHg (80.0-100.0); Potassium - ABG Lab 4.59 mmol/L (3.70-5.30); Puncture Site ALINE; pH, Arterial 7.28 (7.35-7.45)
--- NOTE | 2018-03-24 10:16 | PRG ---
DATE OF SERVICE: 03/24/2018 SUBJECTIVE: Mr. Conway is hospital day 7 for admission for head injury. He is sedated this morning. His left pupil is 5 mm and nonreactive. His right pupil is 3 mm and reactive. He has had fluctuations in his left pupillary response. There is plan for tracheostomy and PEG tube placement. He is quite agitated and moves all extremities when his sedation is weaned. I would be in full favor of pursuance of continued aggressive management on this young man, who sustained a head injury, but in my opinion has a largely favorable prognosis. Job ID: [id number]
[2018-03-24] MEDS: Lorazepam 2 MG/ML VIAL SLOW IVP PRN ×2 (12:13→16:53)
[2018-03-24] MEDS: Acetaminophen 500 MG TAB PER TUBE PRN ×2 (12:20→16:53)
[2018-03-24] MEDS: Ascorbic Acid 500 mg Chewable Tablet PO SCH ×2 (12:33→23:27)
--- NOTE | 2018-03-24 13:37 | PRG ---
DATE OF SERVICE: 03/24/2018 The patient was seen with Dr. Yang Setvenson. SUBJECTIVE: Mr. Yun is a 32-year-old male, hospital day #7 status post traumatic brain injury and craniotomy with Dr. Núñez with Neurosurgery following. He is planned for trach and PEG. He is on the add-on list for tomorrow. Currently, he is still on mechanical ventilator and actually requiring quite a bit of vent support on bilevel at a rate of 14. PEEP high is 30 and low is 12 with pressure support of 15, time high is 1.0, FiO2 is 0.45, peak pressure is 27, and a minute ventilation of 13.3. Currently, status post bronchoscopy this morning with BAL of the right lower lobe demonstrating nearly white-out and likely a mucus plugging. He is currently on Zosyn, remains febrile at times. His hemoglobin has downtrended since arrival, it is now 6.4; therefore, I have ordered 1 PRBC today. He is currently sedated, but is agitated reportedly at times when sedation is lightened, but he is able to move all of his extremities. His brother is at the bedside, and we discussed trach and PEG with him through phone interpretation at the bedside. OBJECTIVE: Today, VITAL SIGNS: Temperature is 100.2, blood pressure is 114/75, heart rate is 116, respiratory rate is 20, and O2 is 100%. GENERAL: This is a 32-year-old male, sedated, intubated on mechanical ventilator. HEENT: Craniotomy noted. No bleeding is appreciated. ET tube is in place with no air leak. RESPIRATORY: Equal rise and fall. Bilateral breath sounds. Clear to auscultation upper and lower bilaterally. CARDIOVASCULAR: Tachycardic rhythm that is regular. No murmurs are appreciated. ABDOMEN: Soft and nontender. PELVIS: He has a Ibarra catheter, and yellow urine is appreciated. He has good urine output, 30 to 60 an hour. MUSCULOSKELETAL: Will move all of his extremities. NEURO: Sedated. Unequal pupils per Neurosurgery's notes and generally agitated when sedation is weaned. SKIN: Pale, warm, and dry. PSYCHIATRIC: Deferred secondary to sedation. LABORATORY DATA: Laboratory data from today: Blood gas shows pH is 7.49, pCO2 is 29.4, and pO2 is 66.1, this was all prior to his bronchoscopy today. Bicarbonate is 21.7. Ionized calcium is 1.11. Chemistry; sodium is 145, potassium is 3.5, chloride is 115, CO2 is 20, BUN is 20, creatinine is 1.16, glucose is 120, and calcium is 8.3. White blood cell count is 12.2, hemoglobin and hematocrit are 6.3 and 19.4 respectively. Does have a neutrophil predominance of 78.3%. Platelets are 388. DIAGNOSTIC DATA: Chest x-ray from today demonstrates lines and tubes in appropriate position. The ET tube is slightly high, but getting good volumes without any leak. Does have a right effusion versus atelectasis at the lower lobe, otherwise good aeration. Microbiology: Still growing out Klebsiella pneumoniae from 03/19 bronch wash, that is pansensitive. Repeat blood cultures from yesterday show no growth to date. ASSESSMENT: 1. Status post traumatic fall with acute traumatic brain injury. 2. Klebsiella pneumoniae. 3. Acute hypoxic respiratory failure, requiring mechanical ventilation. 4. Right lower lobe atelectasis versus mucus plugging, improved after bronchoscopy. 5. Altered mental status secondary to #1 above. PLAN: 1. Trach and PEG are planned hopeful for tomorrow depending on OR availability. 2. Transfuse 1 PRBC now. 3. Start vitamin C and iron replacements. 4. Electrolyte replacement protocol. 5. Ventilator management per Pulmonary with hope to provide less support at this time. 6. Sedation per Pulmonary, switching to Versed today. We will start to wean after tracheostomy. 7. Tube feeds to continue. We will hold these at midnight for procedure tomorrow. 8. Neurosurgery is following. I appreciate recommendations. 9. Continue antibiotics, Zosyn given the persistent fever, off vancomycin as of now. 10. Continue to follow along. Continue all other supportive care. Job ID: [id number]
--- NOTE | 2018-03-24 15:08 | OP ---
DATE OF PROCEDURE: 03/24/2018 PROCEDURE: Bronchoscopy. PREOPERATIVE DIAGNOSIS: Right lower lobe mucus plug. POSTOPERATIVE DIAGNOSIS: Right lower lobe mucus plug. ANESTHESIA: None. DESCRIPTION OF PROCEDURE: A disposable Ambu bronchoscope was placed through the patient's endotracheal tube while he was on volume-cycled ventilation. Notable findings included an extensive mucus plug present in his right lower lobe, which was lavaged with saline and aspirated. The remainder of his airways was clear. He tolerated the procedure well. Job ID: [id number]
[2018-03-24 15:36] LABS: Hemoglobin 7.2 g/dL (14.0-18.0)
[2018-03-24] MEDS: fentaNYL Citrate/PF 2,000 MCG in Sodium Chloride 0.9% 60 ML IV SCH (22:08)
[2018-03-25] MEDS: Acetaminophen 500 MG TAB PER TUBE PRN ×3 (00:15→23:53)
[2018-03-25 05:23] LABS: Anion Gap 14 mmol/L (10-20); BUN (Urea Nitrogen) 17 mg/dL (8.9-20.6); Calc. Creatinine Clearance 135 mL/min (70-130); Calcium 8.4 mg/dL (7.8-10.44); Carbon Dioxide 20 mmol/L (22-29); Chloride 118 mmol/L (98-107); Estimated GFR-MDRD 74; Glucose 114 mg/dL (70-105); Potassium 3.2 mmol/L (3.5-5.1); Sodium 149 mmol/L (136-145)
[2018-03-25 05:27] LABS: #Basophils 0.1 thou/uL (0.0-0.2); #Eosinphils 0.4 thou/uL (0.0-0.7); #Lymphocytes 2.4 thou/uL (1.20-3.40); #Monocytes 0.7 thou/uL (0.11-0.59); #Neutrophils 11.1 thou/uL (1.40-6.50); %Basophils 0.3 % (0.0-1.0); %Eosinophils 2.9 % (0.0-10.0); %Lymphocytes 16.5 % (21.0-51.0); %Neutrophils 75.3 % (42.0-75.0); Band 17 % (5-11); Eosinophils 2 % (0-10); Hemoglobin 8.1 g/dL (14.0-18.0); Lymphocytes 13 % (21-51); MDiff Complete? YES; Mean Corpuscular HGB CONC 33.4 g/dL (32.0-36.0); Mean Corpuscular Volume 89.7 fL (78.0-98.0); Monocytes 3 % (0-10); Neutrophil 65 % (42-75); PLT Morphology Comment Appears Increased; Platelet Count 442 thou/uL (130-400); Red Blood Cell (RBC) Count 2.69 mill/uL (4.70-6.10); White Blood Cell (WBC) Count 14.8 thou/uL (4.8-10.8)
[2018-03-25] MEDS: Piperacillin/Tazobactam 4.5 GM in Sodium Chloride 0.9% 100 ML IVPB SCH ×4 (05:39→23:53)
[2018-03-25 07:41] LABS: Actual Bicarbonate (HCO3a) 20.5 mEq/L (22-28); Base Excess (BEa) -2.1 mEq/L (-2.0 to +3.0); CO2 Tension 27.6 mmHg (35.0-45.0); Calcium, Ionized 1.14 mmol/L (1.12-1.30); Carboxyhemoglobin (COHb) 0.7 gm% (0.0-3.0); Hemoglobin (Hb) 9.4 g/dL (14.0-18.0); O2 Tension (PaO2) 80.7 mmHg (80.0-100.0); Potassium - ABG Lab 3.71 mmol/L (3.70-5.30); pH, Arterial 7.49 (7.35-7.45)
[2018-03-25 07:44] LABS: Puncture Site LRA
--- NOTE | 2018-03-25 09:02 | RAD ---
CHEST 1 VIEW: Date: 03/25/18 HISTORY: Ventilated patient. COMPARISON: Radiograph from prior day. FINDINGS: Endotracheal tube tip is in good position. Enteric tube tip is not well seen. Partial resolution of the right layering effusion with fluid tracking along the right minor fissure. There are right upper lobe, right lower lobe, and left lower lobe air space opacities. IMPRESSION: Multifocal air space opacities may reflect underlying infection. POS: [facility]
[2018-03-25] MEDS: Famotidine/PF 20 mg/2ml Vial SLOW IVP SCH ×2 (10:12→20:20)
[2018-03-25] MEDS: Dextrose 5% in Water 1,000 ML IV SCH ×2 (10:12→21:48)
[2018-03-25] MEDS: Thiamine HCl 200 MG/2 ML VIAL SLOW IVP SCH (10:12)
[2018-03-25] MEDS: Ascorbic Acid 500 mg Chewable Tablet PO SCH ×2 (10:12→20:20)
--- NOTE | 2018-03-25 10:47 | PRG ---
DATE OF SERVICE: 03/25/2018 PULMONARY/CRITICAL PROGRESS NOTE TIME SPENT: 35 minutes critical care time. SUBJECTIVE: This patient remains intubated, on mechanical ventilation. There have been no acute changes overnight. OBJECTIVE: VITAL SIGNS: On exam, his T-max was 102.2, pulse is 117, blood pressure 129/76, respiratory rate 19, and O2 saturation 100%. Total intake for 24 hours 2509, output 2540. HEENT: Periorbital edema. Right pupil 3 mm, left pupil 5 mm to 6 mm. Oropharynx, endotracheal tube and orogastric tube in place. NECK: No adenopathy or JVD. LUNGS: Clear bilaterally. CARDIOVASCULAR: S1 and S2 regular, but is tachycardic. No murmur. ABDOMEN: Soft. Nontender. EXTREMITIES: No clubbing, cyanosis, or edema. IMAGING DATA: Chest x-ray shows resolution of the right basilar atelectasis. He does have some infiltrative changes present in the right upper lobe region. LABORATORY DATA: White blood cell count 14.8, hemoglobin 8.1, hematocrit 24.2, and platelet count 442 with 65% neutrophils, 17 bands. pH of 7.49, pCO2 of 27, pO2 of 80, that is on bilevel rate 14, high pressure 26, low pressure 12, FiO2 of 45%. Sodium 149, potassium 3.2, chloride 118, CO2 of 20, BUN 17, creatinine 1.1, and glucose 114. MICROBIOLOGY DATA: The bronchial washing showed a few gram-positive cocci in pairs and rare gram-negative rods. ASSESSMENT: 1. Persistent fever. I favor this probably being central in source given his traumatic brain injury. He has had one culture positive, which was a tracheal aspirate from 03/19/2018, which was Klebsiella. He has been on appropriate antibiotics for that. 2. Acute hypoxic respiratory failure, requiring mechanical ventilation. The patient has improved to the point where he can be switched over to an SIMV mode. 3. Traumatic brain injury. 4. Hypernatremia - the patient has developed a free water deficit. PLAN: 1. I will go ahead and switch him to SIMV mode. 2. Add D5W for a day or two and trend the sodium level. 3. We will discuss with primary team concerning possibility of repeating a head CT. Job ID: [id number]
--- NOTE | 2018-03-25 10:56 | PRG ---
DATE OF SERVICE: 03/25/2018 SUBJECTIVE: Mr. Conway is now 1 week out from his cranial injury. He localizes his all four extremities quite briskly, but is not following commands. He has a persistent left third nerve palsy with pupil dilatation this morning, although again, moves all four extremities. We are going to stop his antiepileptic at this point, as he has had no evidence of seizure. There is no data to support continuing it at this time. PLAN: Plan is for trach and PEG tomorrow. Job ID: [id number]
[2018-03-25] MEDS: hydrALAZINE 20 MG/ML VIAL SLOW IVP PRN (11:03)
[2018-03-25] MEDS: fentaNYL Citrate/PF 2,000 MCG in Sodium Chloride 0.9% 60 ML IV SCH (15:01)
[2018-03-25] MEDS ORDERED: Bupivacaine/Epinephrine 0.25% 30 ML VIAL ONE (17:51)
--- NOTE | 2018-03-25 22:10 | RAD ---
PORTABLE CHEST 03/25/18 PROVIDED CLINICAL HISTORY: Dyspnea. FINDINGS: Comparison is made with the examination performed earlier same date. Interval extubation and removal of enteric catheter. Interval placement of tracheostomy. Parenchymal opacity involving the right fatimah thorax appears similar to the prior study when accounting for differences in rotation. Right sided ce ntral line is again seen in similar position. There is no evidence for pneumothorax. IMPRESSION: 1. Interval extubation and removal of enteric catheter. 2. Interval placement of tracheostomy device. 3. Persistent right hemithoracic parenchymal opacity. POS: [facility]
[2018-03-26] MEDS: Piperacillin/Tazobactam 4.5 GM in Sodium Chloride 0.9% 100 ML IVPB SCH (05:39)
[2018-03-26 05:48] LABS: Anion Gap 14 mmol/L (10-20); BUN (Urea Nitrogen) 12 mg/dL (8.9-20.6); Calc. Creatinine Clearance 143 mL/min (70-130); Calcium 7.9 mg/dL (7.8-10.44); Carbon Dioxide 22 mmol/L (22-29); Chloride 112 mmol/L (98-107); Estimated GFR-MDRD 80; Glucose 130 mg/dL (70-105); Potassium 3.6 mmol/L (3.5-5.1); Sodium 144 mmol/L (136-145)
[2018-03-26 06:05] LABS: #Basophils 0.1 thou/uL (0.0-0.2); #Eosinphils 0.2 thou/uL (0.0-0.7); #Lymphocytes 2.5 thou/uL (1.20-3.40); #Monocytes 1.1 thou/uL (0.11-0.59); #Neutrophils 14.2 thou/uL (1.40-6.50); %Basophils 0.4 % (0.0-1.0); %Eosinophils 0.9 % (0.0-10.0); %Monocytes 6.1 % (0.0-10.0); %Neutrophils 78.5 % (42.0-75.0); Hemoglobin 8.7 g/dL (14.0-18.0); Mean Corpuscular HGB CONC 32.9 g/dL (32.0-36.0); Mean Corpuscular Hemoglobin 29.4 pg (27.0-31.0); Mean Corpuscular Volume 89.2 fL (78.0-98.0); Mean Platelet Volume 8.1 fL (7.4-10.4); Platelet Count 353 thou/uL (130-400); RBC Distribution Width 13.2 % (11.5-14.5); Red Blood Cell (RBC) Count 2.96 mill/uL (4.70-6.10); White Blood Cell (WBC) Count 18.1 thou/uL (4.8-10.8)
[2018-03-26 06:06] LABS: MDiff Complete? YES; Platelet Clumps MODERATE
--- NOTE | 2018-03-26 08:13 | PRG ---
DATE OF SERVICE: 03/25/2018 SUBJECTIVE: Mr. Yun remains intubated and sedated in the surgical ICU. He is on SIMV now from bilevel earlier 8-550 that is 0.45 with a PEEP of 10, peak pressures of 23, minute ventilation is 12.1, SpO2 is 100%. He is on Fentanyl at 100 and Versed at 3. Tube feeds are ongoing and tolerating well. He is still having plus, plus liquidy stool and now has a rectal tube in place. Plan is for trach and PEG later today. Therefore, I have asked for the tube feeds to be on hold. He is starting to move his right side and the temperature curve has decreased. OBJECTIVE: VITAL SIGNS: Blood pressure is 143/83, respiratory rate is 20, heart rate is 103, O2 sat is 100%, temperature is 102. GENERAL: A 32-year-old male sedated and intubated on mechanical ventilator. HEENT: Craniotomy noted with madisyn in place. No bleeding. ET tube is in place with no air leak. RESPIRATORY: Equal rise and fall. Bilateral breath sounds. Clear to auscultation in upper and lower bilaterally. CARDIOVASCULAR: Tachycardic, regular rhythm. No murmurs. ABDOMEN: Soft and nontender. PELVIS: Ibarra is in place. MUSCULOSKELETAL: He will move all of his extremities and he will move the right side more so now. NEUROLOGIC: He is sedated. RASS is actually negative 4 to negative 5. Apparently, he does get a little agitated whenever sedation is lightened. He is heavily sedated, and I have asked the nurses to turn this down somewhat with a goal of negative 1 to negative 2. SKIN: Pale, warm, and dry. PSYCHIATRIC: Deferred secondary to sedation. LABORATORY DATA: From today shows a white blood cell count of 14.8, platelets are 442, hemoglobin and hematocrit 8.1 and 24.2 respectively with bandemia 17%. Sodium is 149, potassium is 3.2, chloride is 118, CO2 is 20, creatinine is 1.14, BUN is 17, glucose is 114, calcium is 8.4, mag of 2.0. ABG from this morning; pH of 7.49, pCO2 is 27.6, pO2 is 80.7, bicarb is 20.5; this was actually on bilevel, again he has been switched to SIMV node. Bronchial washing from yesterday showing many white blood cell counts, few gram positive in pair and rarely gram negatives, awaiting further. Chest x-ray from today shows multifocal air space opacities concerning for infection. However, the right lung base is better aerated today. ET tube in good position. Subclavian in good position. ASSESSMENT: 1. Status post traumatic fall with acute traumatic brain injury. 2. Klebsiella pneumoniae. 3. Acute hypoxic respiratory failure, requiring mechanical ventilation. 4. Right lower lobe atelectasis that has resolved after bronchoscopy yesterday. 5. Altered mental status due to #1 above. PLAN: 1. For trach and PEG today, we will hold tube feeds. 2. Replace electrolytes, orders have been reflected. 3. Monitor temperature curve. 4. Pulmonology is following and managing ventilator, glad that he is off of and hopefully to start weaning after tracheostomy. 5. Continue tube feeds after PEG placement today. 6. Neurosurgery is following. I appreciate recommendations. 7. Continue antibiotics, may need to reconsider vancomycin as this was stopped and now has some gram positives in his BAL. Awaiting further. We will continue to follow along. Continue all other supportive care. Job ID: [id number]
[2018-03-26] MEDS: Thiamine HCl 200 MG/2 ML VIAL SLOW IVP SCH (08:50)
[2018-03-26] MEDS: Lorazepam 2 MG/ML VIAL SLOW IVP PRN ×5 (08:52→22:09)
[2018-03-26] MEDS: Famotidine/PF 20 mg/2ml Vial SLOW IVP SCH ×2 (08:53→21:31)
[2018-03-26] MEDS: Ascorbic Acid 500 mg Chewable Tablet PO SCH ×2 (08:55→21:31)
--- NOTE | 2018-03-26 09:09 | RAD ---
PORTABLE CHEST: INDICATIONS: Respiratory distress. CCU followup. COMPARISON: 03/25/2018 FINDINGS: A tracheostomy device is again noted. Alveolar infiltrate in the right mid and upper lung again note d. The left lung is well aerated and clear. IMPRESSION: Right lung infiltrates again noted, not significantly changed from yesterday. POS: [facility]
[2018-03-26] MEDS: Acetaminophen 1,000 MG in Premix Bag 1 BAG IVPB PRN ×2 (09:40→18:28)
[2018-03-26] MEDS: Cefepime 1 GM in Sodium Chloride 0.9% 100 ML IVPB SCH ×2 (09:42→21:30)
--- NOTE | 2018-03-26 10:15 | PRG ---
DATE OF SERVICE: 03/26/2018 PULMONARY/CRITICAL CARE PROGRESS NOTE TIME SPENT: 35 minutes of critical care time. SUBJECTIVE: This patient remains on mechanical ventilation, but now has tracheostomy and PEG tube in place. OBJECTIVE: VITAL SIGNS: On exam, his temperature has been as high as 103.3 yesterday, currently 102.6; pulse between 88 and 128; and blood pressure 155/106. 24-hour intake 1118, output 3030. HEENT: Left pupil 5 mm, right pupil 3 mm, sluggishly reactive on the right. Oropharynx clear. NECK: No JVD. LUNGS: Coarse breath sounds on the right compared to left. CARDIAC: S1 and S2, regular to tachycardic. ABDOMEN: Soft, nontender. PEG tube noted. EXTREMITIES: No edema. LABORATORY DATA: Sodium down to 144, potassium 3.6, chloride 112, CO2 of 22, BUN 12, creatinine 1.0, and glucose 130. White blood cell count 18.1, hematocrit 26.4, and platelet count 353. ABG results are pending. ASSESSMENT: 1. Acute respiratory failure, requiring mechanical ventilation. Tracheostomy in place. 2. Traumatic brain injury. 3. Persistent fever. He is growing out Klebsiella from the bronch I did 2 days ago. The original culture many days ago also showed Klebsiella, but now it is resistant to ampicillin and sulbactam. I suspect that it is probably resistant to Zosyn that he is on. PLAN: 1. We will start him on cefepime and Levaquin and double cover this Klebsiella. 2. Try to wean ventilator. I have come down on his PEEP and his pressure support. 3. Place PICC line and discontinue central line as I believe he will be on antibiotics for quite sometime. 4. We would anticipate placement being extremely difficult, if not possible for this patient. Job ID: [id number]
[2018-03-26] MEDS ORDERED: Fentanyl 100 MCG/2 ML VIAL SLOW IVP PRN (11:40)
--- NOTE | 2018-03-26 13:27 | PRG ---
DATE OF SERVICE: 03/26/2018 Mr. Conway is hospital day 9 following an open left-sided skull fracture with injury to the left frontal operculum with epidural and subdural hematoma, mass effect, midline shift, neurologic decline. He has undergone tracheostomy and PEG tube placement. He moves all four extremities briskly with a bit more sluggish movement on the right side. He does not follow commands, although does attempt to open his eyes this morning to voice with . He remains with a left 3rd nerve palsy. His wound is healing well. At this point, we will pursue continued attempts at disposition, which will likely initially be a long-term acute care facility with hopefully transition to inpatient rehab as I am optimistic given his young age postoperative CT that the patient will do well. We have stopped his antiepileptic as he has not experienced a seizure over the course of the last one week. His beta 2 transferrin from the early rhinorrhea has not returned, although this has ceased drainage, and as such, even if it was positive, I do not think there is anything necessary to do now. He is febrile and does have an elevated white blood cell count and I strongly suspect this is pulmonary in origin. Job ID: [id number]
[2018-03-26 15:51] LABS: Osmolality, Urine 305 mOsm/kg (300-900)
[2018-03-26 15:54] LABS: Sodium, Urine 70 mmol/L (Not Available)
--- NOTE | 2018-03-26 23:28 | PRG ---
DATE OF SERVICE: 03/26/2018 SUBJECTIVE: This is a 32-year-old male, status post fall from roof resulting in severe TBI to include epidural and subdural hematoma, requiring emergent craniotomy. The patient is hospital day #9. He is status post trach and PEG, postop day #1. Per nursing report, the patient opens eyes spontaneously. This morning, he is significantly agitated, moving all extremities, but does not follow commands. The patient is currently on antibiotics for Klebsiella pneumoniae. He was febrile overnight. OBJECTIVE: VITAL SIGNS: Temperature 99.4, blood pressure 166/103, pulse 116, respiratory rate 32, and O2 saturation 98%. GENERAL: A young male resting in bed. HEAD: Surgical madisyn are clean, dry, and intact. Trach with sutures in place. PULMONARY: Tachypneic. Symmetric chest rise. Lungs are clear to auscultation bilaterally. CARDIOVASCULAR: Tachycardic. No obvious murmurs, rubs, or gallops. GI: Abdomen is soft, nontender, nondistended. MUSCULOSKELETAL: Moves all extremities x4. NEUROLOGIC: Moves all extremities x4. Reported 3rd cranial nerve palsy. LABORATORY FINDINGS: WBC 18.1, hemoglobin 8.7, hematocrit 26.4, and platelet count 353. Sodium 144, potassium 3.6, chloride 112, carbon dioxide 22, BUN 12, creatinine 1.07, and glucose 130. RADIOGRAPHIC FINDINGS: Chest x-ray with right lung infiltrate unchanged from previous. ASSESSMENT: 1. Status post fall from roof. 2. Severe traumatic brain injury, secondary to above. 3. Epidural and subdural hematoma, status post craniotomy. 4. Klebsiella pneumonia, on appropriate antibiotics. 5. Hypernatremia, improving. 6. Fever and leukocytosis. PLAN: Antibiotics per Critical Care Medicine. If the patient continues to have persistent fevers or elevated white count, we will re-culture. Labs to rule out diabetes insipidus. Continue IV pain management. Attempt to wean sedation. Continue to follow neuro status. Tube feeds currently being tolerated. Plan of care was discussed with the patient's nurse at bedside and all questions were answered at the time of dictation. The patient discussed with Trauma attending. Job ID: [id number]
[2018-03-27] MEDS: Acetaminophen 1,000 MG in Premix Bag 1 BAG IVPB PRN (00:04)
[2018-03-27] MEDS: Lorazepam 2 MG/ML VIAL SLOW IVP PRN (00:04)
[2018-03-27 05:22] LABS: Anion Gap 12 mmol/L (10-20); BUN (Urea Nitrogen) 19 mg/dL (8.9-20.6); Calc. Creatinine Clearance 134 mL/min (70-130); Calcium 8.9 mg/dL (7.8-10.44); Carbon Dioxide 20 mmol/L (22-29); Chloride 115 mmol/L (98-107); Estimated GFR-MDRD 75; Glucose 130 mg/dL (70-105); Potassium 3.3 mmol/L (3.5-5.1); Sodium 144 mmol/L (136-145)
[2018-03-27 05:24] LABS: #Eosinphils 0.1 thou/uL (0.0-0.7); #Lymphocytes 2.5 thou/uL (1.20-3.40); #Monocytes 0.8 thou/uL (0.11-0.59); %Basophils 0.1 % (0.0-1.0); %Eosinophils 0.6 % (0.0-10.0); %Lymphocytes 17.2 % (21.0-51.0); %Monocytes 5.6 % (0.0-10.0); %Neutrophils 76.5 % (42.0-75.0); Hemoglobin 7.5 g/dL (14.0-18.0); MDiff Complete? YES; Mean Corpuscular HGB CONC 34.1 g/dL (32.0-36.0); Mean Corpuscular Hemoglobin 30.3 pg (27.0-31.0); Mean Corpuscular Volume 88.6 fL (78.0-98.0); Mean Platelet Volume 8.3 fL (7.4-10.4); PLT Morphology Comment Appears Adequate; Platelet Clumps SLIGHT; Platelet Count 211 thou/uL (130-400); Polychromasia SLIGHT = 2-3 cells (100X) (0-2/hpf); Red Blood Cell (RBC) Count 2.48 mill/uL (4.70-6.10); White Blood Cell (WBC) Count 14.3 thou/uL (4.8-10.8)
[2018-03-27] MEDS: Famotidine/PF 20 mg/2ml Vial SLOW IVP SCH ×2 (08:04→20:15)
[2018-03-27] MEDS: Cefepime 1 GM in Sodium Chloride 0.9% 100 ML IVPB SCH ×2 (08:04→20:15)
[2018-03-27] MEDS: Ascorbic Acid 500 mg Chewable Tablet PO SCH ×2 (08:05→20:15)
[2018-03-27] MEDS: Thiamine HCl 200 MG/2 ML VIAL SLOW IVP SCH (09:19)
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
--- NOTE | 2018-03-27 10:24 | RAD ---
PORTABLE CHEST ONE VIEW: 03/27/2018 5:59 a.m. HISTORY: Respiratory failure. COMPARISON: Exam from the previous day. FINDINGS: There has been interval improvement without complete resolution of the infiltrates in the right lung. There is mild atelectatic change versus mild infiltrate at the left lung base, which is new since t he last exam. Line and tube placements are unchanged in position. POS: [facility]
[2018-03-27] MEDS ORDERED: CCU Electrolyte Replacement 1 EACH FS ONE (10:36)
--- NOTE | 2018-03-27 11:09 | PRG ---
DATE OF SERVICE: 03/27/2018 SUBJECTIVE: Mr. Trivedi is on the 10th day of hospital admission, status post left craniectomy and epidural hematoma evacuation with Dr. Núñez. This morning, he is awake and only somewhat interactive. There is certainly a language barrier. He has a persistent left cranial nerve 3 palsy, but otherwise moves all four extremities spontaneously. He has been somewhat agitated. His CBC shows decreasing hemoglobin and hematocrit, which may need to be addressed. He did receive blood products roughly three days ago for the same purpose. Potassium is down to 3.3. We will initiate PT with electrolyte replacement. Job ID: [id number]
[2018-03-27] MEDS: Scopolamine 1.5 mg/72 hour Patch TD SCH (13:16)
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
[2018-03-28 05:00] LABS: #Eosinphils 0.4 thou/uL (0.0-0.7); #Lymphocytes 2.4 thou/uL (1.20-3.40); #Monocytes 0.7 thou/uL (0.11-0.59); #Neutrophils 8.1 thou/uL (1.40-6.50); %Basophils 0.1 % (0.0-1.0); %Eosinophils 3.5 % (0.0-10.0); %Lymphocytes 20.9 % (21.0-51.0); %Monocytes 6.2 % (0.0-10.0); %Neutrophils 69.3 % (42.0-75.0); Hemoglobin 7.5 g/dL (14.0-18.0); Mean Corpuscular HGB CONC 30.3 g/dL (32.0-36.0); Mean Corpuscular Hemoglobin 26.7 pg (27.0-31.0); Mean Corpuscular Volume 88.3 fL (78.0-98.0); Mean Platelet Volume 8.4 fL (7.4-10.4); Platelet Count 226 thou/uL (130-400); Red Blood Cell (RBC) Count 2.81 mill/uL (4.70-6.10); White Blood Cell (WBC) Count 11.7 thou/uL (4.8-10.8)
[2018-03-28 05:16] LABS: Anion Gap 14 mmol/L (10-20); BUN (Urea Nitrogen) 21 mg/dL (8.9-20.6); Calc. Creatinine Clearance 116 mL/min (70-130); Calcium 9.3 mg/dL (7.8-10.44); Carbon Dioxide 21 mmol/L (22-29); Chloride 117 mmol/L (98-107); Estimated GFR-MDRD 74; Glucose 127 mg/dL (70-105); Magnesium 2.3 mg/dL (1.6-2.6); Potassium 3.4 mmol/L (3.5-5.1); Sodium 149 mmol/L (136-145)
[2018-03-28 05:20] LABS: Phosphorus 4.1 mg/dL (2.3-4.7)
[2018-03-28] MEDS: Ascorbic Acid 500 mg Chewable Tablet PO SCH ×2 (08:40→21:14)
[2018-03-28] MEDS: Cefepime 1 GM in Sodium Chloride 0.9% 100 ML IVPB SCH ×2 (08:40→21:14)
[2018-03-28] MEDS: Famotidine/PF 20 mg/2ml Vial SLOW IVP SCH ×2 (08:40→21:14)
[2018-03-28] MEDS: Thiamine HCl 200 MG/2 ML VIAL SLOW IVP SCH (08:41)
--- NOTE | 2018-03-28 09:15 | RAD ---
FRONTAL RADIOGRAPH CHEST: Date: 03/28/18 COMPARISON: 03/27/18. HISTORY: Ventilated patient. FINDINGS: Horizontal increased density in the right perihilar region/mid right lung zone noted, suggesting infi ltrate or volume loss. Tracheostomy tube and right subclavian central venous catheter are stable. Min imal linear density in the medial left base noted, slightly improved. IMPRESSION: Nonspecific increased density in the lung bases, right greater than left. POS: [facility]
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
[2018-03-29 07:27] LABS: Anion Gap 16 mmol/L (10-20); BUN (Urea Nitrogen) 24 mg/dL (8.9-20.6); Calc. Creatinine Clearance 116 mL/min (70-130); Carbon Dioxide 22 mmol/L (22-29); Chloride 113 mmol/L (98-107); Estimated GFR-MDRD 69; Potassium 3.5 mmol/L (3.5-5.1); Sodium 147 mmol/L (136-145)
[2018-03-29 07:28] LABS: Calcium 9.5 mg/dL (7.8-10.44); Glucose 126 mg/dL (70-105); Magnesium 2.6 mg/dL (1.6-2.6)
[2018-03-29 07:36] LABS: #Basophils 0.1 thou/uL (0.0-0.2); #Eosinphils 0.3 thou/uL (0.0-0.7); #Lymphocytes 2.6 thou/uL (1.20-3.40); #Monocytes 0.8 thou/uL (0.11-0.59); #Neutrophils 6.9 thou/uL (1.40-6.50); %Basophils 0.6 % (0.0-1.0); %Eosinophils 3.2 % (0.0-10.0); %Lymphocytes 24.4 % (21.0-51.0); %Monocytes 7.4 % (0.0-10.0); %Neutrophils 64.4 % (42.0-75.0); Hemoglobin 8.7 g/dL (14.0-18.0); Mean Corpuscular HGB CONC 32.9 g/dL (32.0-36.0); Mean Corpuscular Hemoglobin 28.6 pg (27.0-31.0); Mean Corpuscular Volume 87.1 fL (78.0-98.0); Mean Platelet Volume 7.5 fL (7.4-10.4); Platelet Count 307 thou/uL (130-400); RBC Distribution Width 13.1 % (11.5-14.5); Red Blood Cell (RBC) Count 3.04 mill/uL (4.70-6.10); White Blood Cell (WBC) Count 10.6 thou/uL (4.8-10.8)
[2018-03-29 07:40] LABS: Phosphorus 4.3 mg/dL (2.3-4.7)
--- NOTE | 2018-03-29 09:45 | RAD ---
PORTABLE SEMIUPRIGHT FRONTAL CHEST RADIOGRAPH: Date: 03/29/18 COMPARISON: 03/28/18. HISTORY: Ventilated patient. FINDINGS: Stable tracheostomy tube and right-sided vascular catheter. There are increased linear interstitial d ensities noted in bilateral perihilar regions, right greater than left. There is increased horizontal linear density in the mid right lung zone with focal opacity in the right infrahilar region. When co mpared to the prior examination, there has been no significant interval change. There is questionable mild worsening of the opacity in the mid right lung zone and right infrahilar region. IMPRESSION: Pulmonary parenchymal opacity, right greater than left, as detailed above, possibly slightly worsened . Findings suggest volume loss, infectious pneumonitis, or aspiration. POS: [facility]
[2018-03-29] MEDS: Ascorbic Acid 500 mg Chewable Tablet PO SCH ×2 (09:53→20:52)
[2018-03-29] MEDS: Famotidine/PF 20 mg/2ml Vial SLOW IVP SCH ×2 (09:53→20:52)
[2018-03-29] MEDS: Cefepime 1 GM in Sodium Chloride 0.9% 100 ML IVPB SCH ×2 (09:53→20:52)
[2018-03-29] MEDS: Thiamine HCl 200 MG/2 ML VIAL SLOW IVP SCH (09:54)
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
--- NOTE | 2018-03-29 13:45 | PRG ---
DATE OF SERVICE: 03/29/2018 SUBJECTIVE: Mr. Trivedi this morning is awake, appears to be alert. He moves all 4 extremities with a language barrier and not to any specific command, but does do so purposefully. From a Neurosurgical standpoint, he appears relatively stable. Wound is intact. No drainage or erythema. We will continue to follow along. He was hyperkalemic at 147, but this was actually a downtrend. Job ID: [id number]
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
--- NOTE | 2018-03-30 08:22 | RAD ---
PORTABLE CHEST 1 VIEW: Date: 03/30/18 Time: 0512 hours HISTORY: Respiratory failure. FINDINGS/IMPRESSION: There is mild interval improvement in the pulmonary opacity since the previous day's exam. POS: [facility]
[2018-03-30] MEDS: Ascorbic Acid 500 mg Chewable Tablet PO SCH ×2 (09:13→20:41)
[2018-03-30] MEDS: Famotidine/PF 20 mg/2ml Vial SLOW IVP SCH ×2 (09:15→20:41)
[2018-03-30] MEDS: Cefepime 1 GM in Sodium Chloride 0.9% 100 ML IVPB SCH ×2 (09:15→20:41)
[2018-03-30] MEDS: Thiamine HCl 200 MG/2 ML VIAL SLOW IVP SCH (09:16)
[2018-03-30] MEDS: Scopolamine 1.5 mg/72 hour Patch TD SCH (09:16)
--- NOTE | 2018-03-30 14:19 | PRG ---
DATE OF SERVICE: 03/30/2018 SUBJECTIVE: The patient is currently on the intermediate care unit. He has been moved from the critical care unit due to his stability and requiring less attention. Medically, the patient has been working with physical and occupational therapy and is making progress, albeit slow. This morning when I came in the room, the patient was actually working with physical therapy. He had the assistance of his friends and family that made his therapy session much better with the language barrier. The patient remains on trach collar and had no reported issues overnight. PHYSICAL EXAMINATION: VITAL SIGNS: Temperature is 98.0, heart rate 125, respirations 21, oxygen saturations 100% on trach collar, blood pressure 136/97. GENERAL: Again, the patient is working with physical and occupational therapy. Appears to be tracking and following simple commands. The patient has noticeable deficit on the left compared to the right. HEENT: Scalp wound is clean, dry, and intact. Monica are intact. Remainder of HEENT is unremarkable. LUNGS: Have scant rhonchi bilaterally. HEART: Regular rate and rhythm with noted tachycardia. ABDOMEN: Soft, flat, nontender with active bowel sounds. EXTREMITIES: Again the right extremity is markedly stronger than the left. It has been reported that at times this is inverse with the left being more mobile than the right. LABORATORY FINDINGS: There are no labs this morning. Chest radiograph this morning shows a mild interval improvement in the pulmonary opacity seen on the day prior to exam. ASSESSMENT: 1. Status post fall from approximately 18 feet. 2. Status post severe traumatic brain injury. 3. Status post craniotomy with evacuation of epidural and subdural hemorrhage. 4. Klebsiella pneumonia. 5. Hypernatremia. PLAN: Plan will be to continue supportive care. Repeat labs in the morning. Antibiotics per Pulmonary. Continue physical and occupational therapy and will await placement. The patient was seen this morning with Dr. Rey. Job ID: [id number]
--- NOTE | 2018-03-30 17:00 | PRG ---
DATE OF SERVICE: 03/30/2018 SUBJECTIVE: Mr. Conway'S progress has been reviewed. OBJECTIVE: VITAL SIGNS: He is afebrile. Heart rate is 120, respiratory rate is 20, oximetry is 100% on trach collar, blood pressure 132/94. Chloride is 106 earlier this morning. GENERAL: He is in no distress. He is handling his secretions. LUNGS: Remarkable for mild rhonchi. HEART: Regular rhythm. ABDOMEN: Soft. He is not using any accessory muscles. LABORATORY DATA: Yesterday's hemoglobin was 8.7. Electrolytes were remarkable for mild hyperchloremia. His renal function is stable. Intake and outputs were reported as positive 1350. IMPRESSION AND PLAN: Traumatic brain injury after fall with tracheostomy in place. He is clinically stable at this point in time. We will continue nutritional support. Job ID: [id number] [facility]TDD
[2018-03-30] MEDS: Acetaminophen 500 MG TAB PER TUBE PRN (17:11)
[2018-03-31 06:01] LABS: Anion Gap 16 mmol/L (10-20); BUN (Urea Nitrogen) 33 mg/dL (8.9-20.6); Calc. Creatinine Clearance 87 mL/min (70-130); Calcium 9.7 mg/dL (7.8-10.44); Carbon Dioxide 20 mmol/L (22-29); Chloride 120 mmol/L (98-107); Estimated GFR-MDRD 62; Glucose 132 mg/dL (70-105); Potassium 3.7 mmol/L (3.5-5.1); Sodium 152 mmol/L (136-145)
[2018-03-31 06:15] LABS: Band 6 % (5-11); Eosinophils 9 % (0-10); Hemoglobin 9.3 g/dL (14.0-18.0); Lymphocytes 17 % (21-51); MDiff Complete? YES; Mean Corpuscular HGB CONC 32.7 g/dL (32.0-36.0); Mean Corpuscular Hemoglobin 28.7 pg (27.0-31.0); Mean Corpuscular Volume 87.6 fL (78.0-98.0); Mean Platelet Volume 8.1 fL (7.4-10.4); Metamyelocyte 1 % (0-0); Monocytes 5 % (0-10); Neutrophil 62 % (42-75); PLT Morphology Comment Appears Increased; Platelet Clumps SLIGHT; Platelet Count 611 thou/uL (130-400); Polychromasia SLIGHT = 2-3 cells (100X) (0-2/hpf); RBC Distribution Width 13.5 % (11.5-14.5); Red Blood Cell (RBC) Count 3.24 mill/uL (4.70-6.10); White Blood Cell (WBC) Count 11.3 thou/uL (4.8-10.8)
--- NOTE | 2018-03-31 08:53 | RAD ---
FRONTAL VIEW CHEST: Date: 03/31/18 COMPARISON: Previous day. INDICATION: Ventilated patient with respiratory failure. FINDINGS: There is hypoinflation of lungs. Patient is intubated. There has been increased conspicuity of probab le right perihilar atelectasis, although component of pneumonitis is not excluded. Interstitial promi nence of each lung favors edema. There is prominence of the pulmonary vasculature. IMPRESSION: Increased conspicuity of right perihilar, predominantly linear opacification favoring atelectasis, as discussed above. Recommend continued follow-up. POS: [facility]
[2018-03-31] MEDS: Cefepime 1 GM in Sodium Chloride 0.9% 100 ML IVPB SCH ×2 (09:27→21:08)
[2018-03-31] MEDS: Ascorbic Acid 500 mg Chewable Tablet PO SCH ×2 (09:27→21:08)
[2018-03-31] MEDS: Thiamine HCl 200 MG/2 ML VIAL SLOW IVP SCH (09:27)
[2018-03-31] MEDS: Famotidine/PF 20 mg/2ml Vial SLOW IVP SCH ×2 (09:28→21:10)
[2018-03-31] MEDS ORDERED: Dextrose 5% in Water 1,000 ML IV SCH (14:00)
--- NOTE | 2018-03-31 14:10 | PRG ---
DATE OF SERVICE: 03/31/2018 SUBJECTIVE: The patient remains in the intermediate care unit. There were no reported issues overnight. The patient is working with Physical and Occupational therapy, and is appears to be progressing. The patient is tolerating his tube feeds. His bowel function has returned. His pain is controlled. PHYSICAL EXAMINATION: VITAL SIGNS: Temperature is 98, heart rate 101, blood pressure 143/99, respirations 18, oxygen saturation 99% on trach collar. GENERAL: The patient is resting comfortably in bed. He is awake. He is following simple commands. Albeit, there is a language barrier, but he does appear to be following appropriately. HEENT: Unchanged. LUNGS: Clear to auscultation with moderate inspiratory and expiratory effort. HEART: Regular rate and rhythm. ABDOMEN: Soft, flat, nontender with active bowel sounds. EXTREMITIES: The patient is definitely moving his left side more this morning than he did yesterday and his right still is his dominant side for movement. LABORATORY FINDINGS: White blood cell count 11.3, hemoglobin 9.3, hematocrit 28.4, and platelets 611. Sodium is 152, potassium 3.7, chloride 120, CO2 20, BUN 33, creatinine 1.34, and glucose 132. RADIOGRAPHS: Chest x-ray shows a predominantly linear opacification on the right favoring atelectasis. There also is prominence of the pulmonary vasculature. ASSESSMENT: 1. Status post fall from approximately 18 feet. 2. Status post severe traumatic brain injury. 3. Status post craniotomy with evacuation of epidural and subdural hemorrhage. 4. Klebsiella pneumonia. 5. Hyperchloremia and hypernatremia. PLAN: Plan will be to continue supportive care, Physical and Occupational therapy. We will increase his free water flushes with his tube feeds and ensure that IV fluids are restricted. The patient will also be moved to the surgical floor today. Job ID: [id number]
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
--- NOTE | 2018-03-31 15:23 | SPC ---
LEFLT UPPER EXTREMITY PICC LINE ULTRASOUND AND FLUOROSCOPIC GUIDANCE: PROCEDURE: After informed consent had been obtained, the patient was placed on the interventional suite table in a supine position. The left arm was prepped and draped in a standard sterile fashion. Topical anes thesia was achieved utilizing 1% Lidocaine and sodium bicarbonate. Under real-time sonography, the b asilic vein of the left upper extremity was accessed with a small caliber needle with venous flash pr esent at the needle hub. A guidewire was then advanced in to the needle, and under real-time fluoros copy, the guidewire was advanced to the level of the inferior vena cava to confirm appropriate venous placement. A small skin incision was made and the needle was removed. Over the guidewire, a double lumen PICC line was cut to 40 cm. The PICC line was advanced under real-time fluoroscopy over the g uidewire to the level of the cavoatrial junction. The guidewire and peelaway sheath were then remove d. PICC line flushed and aspirated appropriately and was secured to the left upper extremity. There were no procedural complications. FLUOROSCOPY DATA: 31 mGy*cm^2, 0 minutes intermittent fluoroscopy. IMPRESSION: Technically successful ultrasound and fluoroscopic-guided left PICC line placement, as above. POS: [facility]
[2018-03-31] MEDS: Dextrose 5% in Water 1,000 ML IV SCH (17:17)
[2018-03-31] MEDS ORDERED: Melatonin 3 MG TAB PO PRN (19:23)
[2018-04-01 07:49] LABS: Hemoglobin 8.5 g/dL (14.0-18.0); Mean Corpuscular Volume 87.6 fL (78.0-98.0); Mean Platelet Volume 8.1 fL (7.4-10.4); Platelet Count 524 thou/uL (130-400); RBC Distribution Width 13.8 % (11.5-14.5); Red Blood Cell (RBC) Count 3.01 mill/uL (4.70-6.10); White Blood Cell (WBC) Count 11.9 thou/uL (4.8-10.8)
[2018-04-01 08:01] LABS: Anion Gap 15 mmol/L (10-20); BUN (Urea Nitrogen) 32 mg/dL (8.9-20.6); Calc. Creatinine Clearance 99 mL/min (70-130); Calcium 9.3 mg/dL (7.8-10.44); Carbon Dioxide 21 mmol/L (22-29); Chloride 120 mmol/L (98-107); Estimated GFR-MDRD 71; Glucose 134 mg/dL (70-105); Magnesium 2.7 mg/dL (1.6-2.6); Phosphorus 3.5 mg/dL (2.3-4.7); Potassium 3.5 mmol/L (3.5-5.1); Sodium 152 mmol/L (136-145)
[2018-04-01 08:15] LABS: #Basophils 0.1 thou/uL (0.0-0.2); #Eosinphils 0.1 thou/uL (0.0-0.7); #Lymphocytes 2.7 thou/uL (1.20-3.40); #Monocytes 1.7 thou/uL (0.11-0.59); #Neutrophils 7.4 thou/uL (1.40-6.50); %Basophils 0.7 % (0.0-1.0); %Eosinophils 0.5 % (0.0-10.0); %Lymphocytes 22.4 % (21.0-51.0); %Monocytes 14.4 % (0.0-10.0)
[2018-04-01] MEDS: Ascorbic Acid 500 mg Chewable Tablet PO SCH ×2 (08:22→20:59)
[2018-04-01] MEDS: Famotidine/PF 20 mg/2ml Vial SLOW IVP SCH ×2 (08:23→20:59)
--- NOTE | 2018-04-01 08:57 | RAD ---
CHEST ONE VIEW: History: Dyspnea. Intubated. Follow up. Comparison: 03-31-15 FINDINGS: Cardiac silhouette is magnified by projection. Shallow inspiration accentuates pulmonary markings whi ch remain prominent. Parenchymal infiltrate at the right infrahilar level is similar in appearance to the prior study. Mediastinum midline with tracheostomy appliance. Tip of a left upper extremity PICC overlies the superior vena cava. Right subclavian central venous catheter is no longer visible. No e vidence of pneumothorax. IMPRESSION: 1. Right infrahilar infiltrate, pulmonary vasculature congestion, and other findings are stable. 2. New left upper extremity PICC. Removal of the right subclavian central venous catheter. POS: [facility]
[2018-04-01] MEDS: Thiamine HCl 200 MG/2 ML VIAL SLOW IVP SCH (09:09)
[2018-04-01 09:34] LABS: Hypochromia SLIGHT = 6-15 cells (100X) (0-5/hpf); MDiff Complete? YES; PLT Morphology Comment Appears Increased; Polychromasia MODERATE = 3-4 cells (100X) (0-2/hpf)
[2018-04-01] MEDS ORDERED: Sodium Bicarbonate Tab 325 MG TAB PER TUBE PRN (09:43)
[2018-04-01] MEDS ORDERED: Pancrelipase DR 12000 1 CAP PER TUBE PRN (09:43)
[2018-04-01] MEDS: Cefepime 1 GM in Sodium Chloride 0.9% 100 ML IVPB SCH ×2 (09:56→20:59)
--- NOTE | 2018-04-01 12:58 | PRG ---
DATE OF SERVICE: 04/01/2018 SUBJECTIVE: The patient is currently on the surgical floor. He has been transferred up from the intermediate care unit yesterday. Overnight, the patient had no issues. He is continuing to work with Physical and Occupational Therapy and tolerating his tube feeds. Today, his tube feeds will be switched to a bolus feed in attempts to lessen lines and tubes to the patient and get him more mobile. PHYSICAL EXAMINATION: VITAL SIGNS: Temperature is 97.9, heart rate 107, blood pressure 130/78, respirations 18, oxygen saturation is 96% on trach collar. GENERAL: The patient is resting comfortably in bed. He does not appear in any distress. He opens his eyes to verbal command and will follow simple commands. LUNGS: Clear to auscultation bilaterally. This is an improvement. HEART: Regular rate and rhythm, though mildly tachy. ABDOMEN: Soft, flat, and nontender with active bowel sounds. EXTREMITIES: Neurovascularly intact x4. The patient seems to be equally moving his extremities today, though his left appears to still be less than his right. LABORATORY FINDINGS: White blood cell count 11.9, hemoglobin 8.5, hematocrit 26.4, platelets 524. Sodium 152, potassium 3.5, chloride 120, CO2 of 21, BUN 32, creatinine 1.19, glucose 134, phosphorus 2.5, magnesium 2.7. DIAGNOSTIC STUDIES: AP chest x-ray shows right infrahilar infiltrate and pulmonary vascular congestion, and other findings are stable. ASSESSMENT: 1. Status post fall from approximately 18 feet. 2. Status post severe traumatic brain injury. 3. Status post craniotomy with evacuation of epidural and subdural hemorrhage. 4. Klebsiella pneumonia, resolving. 5. Hyperchloremia and hypernatremia. PLAN: Plan will be to continue free water, supportive care and again change to bolus type feedings. We will also encourage more physical and occupational therapy as the patient tolerates. Likely during the next couple of days, we will also ask Speech to begin evaluating his swallow. The evaluation and examination were done with Dr. Daniels today. Job ID: [id number]
[2018-04-01] MEDS: Dextrose 5% in Water 1,000 ML IV SCH (13:07)
[2018-04-02 06:03] LABS: Eosinophils 2 % (0-10); Hemoglobin 8.3 g/dL (14.0-18.0); Hypochromia SLIGHT = 6-15 cells (100X) (0-5/hpf); Lymphocytes 19 % (21-51); MDiff Complete? YES; Mean Corpuscular HGB CONC 33.1 g/dL (32.0-36.0); Mean Corpuscular Hemoglobin 29.2 pg (27.0-31.0); Mean Corpuscular Volume 88.2 fL (78.0-98.0); Mean Platelet Volume 8.2 fL (7.4-10.4); Monocytes 2 % (0-10); Neutrophil 77 % (42-75); PLT Morphology Comment Appears Increased; Platelet Count 510 thou/uL (130-400); Polychromasia SLIGHT = 2-3 cells (100X) (0-2/hpf); RBC Distribution Width 14.3 % (11.5-14.5); Red Blood Cell (RBC) Count 2.86 mill/uL (4.70-6.10)
[2018-04-02 06:07] LABS: Anion Gap 14 mmol/L (10-20); BUN (Urea Nitrogen) 32 mg/dL (8.9-20.6); Calc. Creatinine Clearance 92 mL/min (70-130); Calcium 9.3 mg/dL (7.8-10.44); Carbon Dioxide 24 mmol/L (22-29); Chloride 119 mmol/L (98-107); Estimated GFR-MDRD 65; Glucose 117 mg/dL (70-105); Phosphorus 4.4 mg/dL (2.3-4.7); Potassium 5.4 mmol/L (3.5-5.1); Sodium 152 mmol/L (136-145)
[2018-04-02] MEDS: Famotidine/PF 20 mg/2ml Vial SLOW IVP SCH ×2 (08:00→20:28)
[2018-04-02] MEDS: Thiamine HCl 200 MG/2 ML VIAL SLOW IVP SCH (08:02)
[2018-04-02] MEDS: Ascorbic Acid 500 mg Chewable Tablet PO SCH ×2 (08:02→20:28)
[2018-04-02] MEDS: Cefepime 1 GM in Sodium Chloride 0.9% 100 ML IVPB SCH ×2 (09:31→20:27)
[2018-04-02] MEDS: Scopolamine 1.5 mg/72 hour Patch TD SCH (09:33)
--- NOTE | 2018-04-02 09:59 | RAD ---
CHEST ONE VIEW: HISTORY: A 32-year-old male with a history of respiratory insufficiency. COMPARISON: 04/01/2018 FINDINGS: Tracheostomy tube and left PICC line in place. Minimal horizontal parenchymal changes in the right m id and lower lung zones, possibly representing some subsegmental atelectasis or mild pneumonitis, sta ble to slightly improved from prior study. Mild increased markings in the left chest. IMPRESSION: Stable to slightly improved parenchymal changes in the right perihilar and infrahilar regions. No si gnificant new process. POS: [facility]
--- NOTE | 2018-04-02 15:19 | PRG ---
DATE OF SERVICE: 04/02/2018 SERVICE: Pulmonary Medicine. INTERVAL HISTORY: The patient is doing really well from respiratory standpoint. He is breathing comfortably. He is on room air. There has been no interval change to his condition. Ultimately, his mentation improves on a day-by-day basis. PHYSICAL EXAMINATION: VITAL SIGNS: Afebrile, pulse 69, blood pressure 131/89, respirations 16, and saturation 98% on T-collar. GENERAL: The patient is awake and alert, in no apparent distress. LUNGS: Excellent air entry. Minimal rhonchi are present. They are cleared with cough. HEART: Normal rate and regular. ABDOMEN: Soft, nontender, nondistended. Bowel sounds are positive. MUSCULOSKELETAL: No cyanosis or clubbing. No pitting in the bilateral lower extremities. LABORATORY DATA: WBC 10.0, hemoglobin 8.3, platelets 510,000 and settling down. INR 1.2. Creatinine 1.23 and up trending, BUN 32. Chloride 119, sodium 152 and stable. Potassium 5.4 and also up trending (likely a factor of hemolysis). Bronchial aspirate is growing Klebsiella pneumoniae. C. diff antigen and toxin are negative. IMAGING STUDIES: Chest x-ray demonstrates slightly improved parenchymal opacifications in the right perihilar and infrahilar regions. Low lung volumes accentuate interstitial and vascular markings. Tracheostomy is in good position. There is a left-sided subclavian central venous catheter, which is also in good position. ASSESSMENT: 1. Acute hypoxic respiratory failure, resolved. 2. Community-acquired pneumonia secondary to Klebsiella pneumoniae. 3. Epidural and subdural hematoma, status post craniotomy, postop day 15. 4. Traumatic brain injury following fall from roof, status post percutaneous endoscopic gastrostomy tube and tracheostomy. 5. Hypernatremia. DISCUSSION AND PLAN: The patient's free water deficit is over 3 L. As such, we need to give him 3 L over the next 24 hours. Pulmonary Critical Care will continue to follow, intermittently during this hospital stay. The central line needs to be removed as soon as possible. I suspect the potassium is secondary to hemolysis as he actually has not gotten any over the last [address], as we improve his hydration, this should get better through time. If it does not, additional investigation may be warranted. Pulmonary Critical Care will continue to follow intermittently. Please call if he gets in trouble over the weekend. Job ID: [id number]
--- NOTE | 2018-04-02 19:46 | PRG ---
DATE OF SERVICE: 04/02/2018 SUBJECTIVE: The patient remains on the surgical floor. He had no issues overnight, and he is tolerating his bolus feeds. PHYSICAL EXAMINATION: VITAL SIGNS: Temperature is 99.0, heart rate 93, blood pressure 134/87, respirations 20, and oxygen saturation 95% on trach collar. GENERAL: The patient is resting in bed. He appears in no distress. He awakens to verbal stimuli and will follow very simple commands. HEENT: Unchanged. LUNGS: Clear to auscultation bilaterally. HEART: Regular rate and rhythm. ABDOMEN: Soft, flat, nontender with active bowel sounds. EXTREMITIES: Neurovascularly intact x4. Capillary refill is less than 3 seconds. Pulses are 2+. LABORATORY FINDINGS: White blood cell count 10.0, hemoglobin 8.3, hematocrit 25.2, and platelets 510. Sodium 152, potassium 5.4, chloride 119, CO2 of 24, BUN 32, creatinine 1.28, glucose 117, magnesium 3.0, and phosphorus 4.4. RADIOGRAPHS: Chest x-ray shows stable to slightly improved parenchymal changes in the right perihilar and infrahilar regions. ASSESSMENT: 1. Status post fall from approximately 18 feet. 2. Status post severe traumatic brain injury. 3. Status post craniotomy with evacuation of epidural and subdural hemorrhage. 4. Klebsiella pneumonia, resolving. 5. Hypernatremia and hypokalemia. PLAN: Plan will be to continue supportive care. We will increase his free water flushes from 50 to 150 and repeat his labs in the morning. Continue his bolus feeds, physical and occupational therapy and all remaining supportive care. Job ID: [id number]
[2018-04-03 06:11] LABS: Anion Gap 14 mmol/L (10-20); BUN (Urea Nitrogen) 32 mg/dL (8.9-20.6); Calc. Creatinine Clearance 98 mL/min (70-130); Calcium 9.4 mg/dL (7.8-10.44); Carbon Dioxide 22 mmol/L (22-29); Chloride 112 mmol/L (98-107); Estimated GFR-MDRD 74; Glucose 113 mg/dL (70-105); Phosphorus 4.8 mg/dL (2.3-4.7); Potassium 4.6 mmol/L (3.5-5.1); Sodium 143 mmol/L (136-145)
[2018-04-03 06:19] LABS: Hemoglobin 8.3 g/dL (14.0-18.0); Mean Corpuscular HGB CONC 32.9 g/dL (32.0-36.0); Mean Corpuscular Volume 88.2 fL (78.0-98.0); Mean Platelet Volume 8.1 fL (7.4-10.4); Platelet Count 522 thou/uL (130-400); RBC Distribution Width 14.6 % (11.5-14.5); Red Blood Cell (RBC) Count 2.87 mill/uL (4.70-6.10); White Blood Cell (WBC) Count 9.5 thou/uL (4.8-10.8)
[2018-04-03 06:20] LABS: Band 2 % (5-11); Eosinophils 17 % (0-10); Lymphocytes 22 % (21-51); MDiff Complete? YES; Monocytes 3 % (0-10); Neutrophil 54 % (42-75); PLT Morphology Comment Appears Increased; RBC Morphology Normal; Reactive Lymphocytes 1 % (0-10)
[2018-04-03] MEDS: Famotidine/PF 20 mg/2ml Vial SLOW IVP SCH ×2 (08:22→21:13)
[2018-04-03] MEDS: Cefepime 1 GM in Sodium Chloride 0.9% 100 ML IVPB SCH ×2 (08:22→21:13)
[2018-04-03] MEDS: Ascorbic Acid 500 mg Chewable Tablet PO SCH ×2 (08:22→21:13)
[2018-04-03] MEDS: Thiamine HCl 200 MG/2 ML VIAL SLOW IVP SCH (08:22)
--- NOTE | 2018-04-03 10:38 | RAD ---
PORTABLE AP CHEST XRAY: DATE: 04/03/2018. HISTORY: On ventilator. Followup evaluation. COMPARISON: 04/02/2018. FINDINGS: Tracheostomy device and left-sided PICC line remain in place. Linear densities are again seen in the right mid lung zone and the right lung base and to a lesser extent left lug base. However, pneumoni tis at the right lung base could not be entirely excluded. Cardiac silhouette and pulmonary vasculat ure are within normal limits. There has been no significant interval change when compared to the karina or exam. IMPRESSION: Stable chest. POS: [facility]
--- NOTE | 2018-04-03 20:10 | PRG ---
DATE OF SERVICE: 04/03/2018 SUBJECTIVE: The patient remains on the surgical floor. He had no issues overnight. This morning prior to my arrival, the patient had been out of bed, had a bowel movement. Upon my arrival, he was asleep. He would awaken briefly, but the nurse noted that he was more fatigued this morning than previously. The patient has been tolerating his bolus feeds. PHYSICAL EXAMINATION: VITAL SIGNS: Temperature 98.9, heart rate 82, blood pressure 133/86, respirations 16, oxygen saturation 98% on trach collar. GENERAL: The patient resting comfortably in bed. He appears in no distress. Again, he will awaken briefly to verbal stimuli and will follow very simple commands. HEENT: Unremarkable. LUNGS: Clear to auscultation bilaterally. HEART: Regular rate and rhythm. ABDOMEN: Soft, flat, and nontender with active bowel sounds. EXTREMITIES: The patient is moving all 4 extremities. Capillary refill is less than 3 seconds. LABORATORY FINDINGS: White blood cell count 9.5, hemoglobin 8.3, hematocrit 25.4, platelets 522. Sodium 134, potassium 4.6, chloride 112, CO2 of 22, BUN 32, creatinine 1.14, glucose 113, magnesium 3.0, and phosphorus 4.8. IMAGING STUDIES: Chest radiograph shows stable chest. ASSESSMENT: 1. Status post fall from approximately 18 feet. 2. Status post severe traumatic brain injury. 3. Status post craniotomy with evacuation of epidural and subdural hematoma. 4. Klebsiella pneumoniae, resolving. PLAN: Plan will be to continue supportive care and await final placement decisions that are being worked searching for surgical options. Job ID: [id number] MTDD
[2018-04-04] MEDS: Ascorbic Acid 500 mg Chewable Tablet PO SCH ×2 (08:47→20:15)
[2018-04-04] MEDS: Thiamine HCl 200 MG/2 ML VIAL SLOW IVP SCH (08:47)
[2018-04-04] MEDS: Cefepime 1 GM in Sodium Chloride 0.9% 100 ML IVPB SCH (08:47)
[2018-04-04] MEDS: Famotidine/PF 20 mg/2ml Vial SLOW IVP SCH ×2 (08:47→20:15)
--- NOTE | 2018-04-04 16:41 | PRG ---
DATE OF SERVICE: 04/04/2018 SUBJECTIVE: The patient is currently on the surgical floor. There were no reported issues overnight. This morning, the patient is resting comfortably in bed. His brother is at bedside and states that the patient was up earlier and the nurse confirms that he was up, again had his bolus feeding and immediately had to use the bathroom and had a bowel movement. Since then, the patient has been sleeping. He did wake for his brother speaking to him briefly. The nurses do relay that the patient has been up throughout the day and in the evenings. His sleep-rest cycle is not completely balanced out yet. PHYSICAL EXAMINATION: VITAL SIGNS: Temperature is 98.5, heart rate 100, blood pressure 135/95, respirations 16, oxygen saturation 99% on room air. GENERAL: The patient currently is sleeping in bed. He did wake up when his brother spoke to him, specifically in his [place] language and would give him a thumbs up to follow commands. HEENT: Unchanged. LUNGS: Clear to auscultation bilaterally. HEART: Regular rate and rhythm. ABDOMEN: Soft, flat, nontender with active bowel sounds. PEG tube is functioning. The patient is moving all extremities. LABORATORY DATA: There are no labs or radiographs to review this morning. ASSESSMENT: 1. Status post fall. 2. Status post severe traumatic brain injury. 3. Status post craniotomy for evacuation of epidural subdural hematoma. 4. Status post tracheostomy tube placement and PEG tube placement. 5. Status post respiratory failure. PLAN: Plan will be to continue supportive care, trach collar, bolus feeds, working with Physical and Occupational Therapy, and hopefully, obtain some form of placement decision. Job ID: [id number]
--- NOTE | 2018-04-04 18:54 | PRG ---
DATE OF SERVICE: 04/04/2018 SERVICE: Pulmonary Medicine. INTERVAL HISTORY: The patient is doing fine from respiratory standpoint. Breathing comfortably. Denies any current chest pain, fevers, or chills. Otherwise, there has been no interval change to his condition. PHYSICAL EXAMINATION: VITAL SIGNS: Afebrile, pulse 93, blood pressure 136/95, respirations 18, saturation 97% on room air. GENERAL: The patient is awake and alert, in no apparent distress. LUNGS: Decent air entry. There is no prolonged expiratory phase or wheezing present. Rhonchi present, but clear with cough. No crackles. HEART: Normal rate, regular. ABDOMEN: Soft, nontender, and nondistended. Bowel sounds are positive. MUSCULOSKELETAL: No cyanosis or clubbing. There is no pitting in the bilateral lower extremities. ASSESSMENT: 1. Acute hypoxic respiratory failure, resolved. 2. Community-acquired pneumonia secondary to Klebsiella pneumoniae, status post full course of antibiotic. 3. Epidural and subdural hematoma, status post craniotomy, postop day 17. 4. Traumatic brain injury following fall from roof, status post percutaneous gastrostomy tube and tracheostomy. 5. Hypernatremia, resolved. DISCUSSION AND PLAN: Supportive measures will be continued. He has completed a full course of antibiotics. As such, these things are going to be interrupted. Pulmonary Critical Care will continue to follow along, intermittently during the hospital stay. Job ID: [id number]
[2018-04-04] MEDS: Acetaminophen 500 MG TAB PER TUBE PRN (20:14)
[2018-04-05] MEDS: Famotidine/PF 20 mg/2ml Vial SLOW IVP SCH ×2 (09:12→20:42)
[2018-04-05] MEDS: Ascorbic Acid 500 mg Chewable Tablet PO SCH ×2 (09:12→20:36)
[2018-04-05] MEDS: Thiamine HCl 200 MG/2 ML VIAL SLOW IVP SCH (09:13)
[2018-04-05] MEDS: Scopolamine 1.5 mg/72 hour Patch TD SCH (09:13)
--- NOTE | 2018-04-05 13:10 | PRG ---
DATE OF SERVICE: 04/05/2018 SUBJECTIVE: The patient remains on the surgical floor. He had no issues overnight. He has been tolerating his bolus feeds. He still tries to work with Physical and Occupational Therapy. His pain is controlled and his bowel function has returned. PHYSICAL EXAMINATION: VITAL SIGNS: Temperature is 98.4, heart rate 93, blood pressure 137/99, respirations 20, oxygen saturation 97% on room air. GENERAL: The patient is lying in bed, sleeping. He does awaken with verbal stimuli and was able to give me a thumbs up. LUNGS: Clear to auscultation bilaterally. HEART: Regular rate and rhythm. ABDOMEN: Soft, flat, with active bowel sounds. PEG tube appears to be functioning properly. EXTREMITIES: Neurovascularly intact. Again, he seems to be more dominant on the right than the left. DIAGNOSTIC STUDIES: There are no labs or radiographs to review this morning. ASSESSMENT: 1. Status post fall. 2. Status post craniotomy for evacuation of epidural/subdural hemorrhages. 3. Status post tracheostomy. 4. Status post PEG tube placement. PLAN: Plan will be to continue supportive care. Bolus feeds and await the placement decision. Job ID: [id number]
[2018-04-06] MEDS: Famotidine/PF 20 mg/2ml Vial SLOW IVP SCH ×2 (08:16→20:30)
[2018-04-06] MEDS: Ascorbic Acid 500 mg Chewable Tablet PO SCH ×2 (08:17→20:30)
[2018-04-06] MEDS: Thiamine HCl 200 MG/2 ML VIAL SLOW IVP SCH (08:20)
[2018-04-06] MEDS: hydrALAZINE 20 MG/ML VIAL SLOW IVP PRN (11:39)
--- NOTE | 2018-04-06 18:39 | PRG ---
DATE OF SERVICE: 04/06/2018 SUBJECTIVE: The patient remains on the surgical floor. He had no issues overnight. He is tolerating his bolus feeds. Physical Therapy is attempting to progress with him. We will get clarification in regard to if he needs any bracing for his subtle compression fractures. To my knowledge, he will not need it, but we will get clarification. Also, the patient has not had a venogram more than two weeks, so we will repeat that also. The patient's brother is at bedside to help with translation this morning. OBJECTIVE: VITAL SIGNS: Temperature is 98.2, heart rate 93, blood pressure 139/89, respirations 18, oxygen saturation is 96% on room air. GENERAL: The patient is sitting in a chair at bedside. He has his eyes open and will follow simple commands. NECK: The patient's trachea is patent. LUNGS: Clear to auscultation with good inspiratory and expiratory effort. HEART: Regular rate and rhythm. ABDOMEN: Soft, flat, and nontender with active bowel sounds. PEG tube has been functioning properly. EXTREMITIES: Neurovascularly intact x4. DIAGNOSTIC STUDIES: There are no labs or radiographs to review this morning. ASSESSMENT: 1. Status post fall from approximately 18 feet. 2. Status post craniotomy for evacuation of epidural and subdural hematomas. 3. Status post tracheostomy. 4. Status post PEG tube placement. PLAN: Plan will be to continue supportive care. Bolus feeds as directed. We will repeat his labs in the morning again, venogram of bilateral lower extremities in light of the patient not being a candidate for anticoagulation and will likely discuss downsizing his trach tomorrow too. Job ID: [id number]
[2018-04-06] MEDS: Acetaminophen 500 MG TAB PER TUBE PRN (20:30)
--- NOTE | 2018-04-06 21:02 | ULT ---
BILATERAL LOWER EXTREMITY VENOUS DUPLEX ULTRASOUND INCLUDING COLOR AND SPECTRAL DOPPLER IMAGIN04/06/18 HISTORY: 32-year-old male with history of immobility. Exam performed from groin to ankle including visualized greater saphenous, common femoral, superfici al femoral, profunda femoral, popliteal, trifurcation, and posterior tibial vein regions. In the righ t lower extremity at the level of the posterior tibial vein, there was only partial compressibility w ith very limited trickle flow, evidence for nonobstructing deep venous thrombosis. The left lower ext remity deep venous system was patent. IMPRESSION: Incompletely obstructing thrombus within the right posterior tibial vein. Findings were discussed with nurse, Antonia, by Jnea Ch at the time of the examination. Code CR POS: [facility]
[2018-04-06] MEDS ORDERED: Enoxaparin Sodium 80 MG/0.8 ML SYRINGE SC SCH (21:15)
[2018-04-07 06:05] LABS: #Basophils 0.1 thou/uL (0.0-0.2); #Eosinphils 0.4 thou/uL (0.0-0.7); #Lymphocytes 2.8 thou/uL (1.20-3.40); #Monocytes 0.8 thou/uL (0.11-0.59); #Neutrophils 6.7 thou/uL (1.40-6.50); %Basophils 0.9 % (0.0-1.0); %Eosinophils 3.9 % (0.0-10.0); %Lymphocytes 26.4 % (21.0-51.0); %Monocytes 6.9 % (0.0-10.0); %Neutrophils 61.9 % (42.0-75.0); Hemoglobin 10.7 g/dL (14.0-18.0); Mean Corpuscular HGB CONC 33.2 g/dL (32.0-36.0); Mean Corpuscular Hemoglobin 28.9 pg (27.0-31.0); Mean Corpuscular Volume 86.9 fL (78.0-98.0); Mean Platelet Volume 7.2 fL (7.4-10.4); Platelet Count 530 thou/uL (130-400); RBC Distribution Width 14.1 % (11.5-14.5); Red Blood Cell (RBC) Count 3.69 mill/uL (4.70-6.10); White Blood Cell (WBC) Count 10.8 thou/uL (4.8-10.8)
[2018-04-07 06:22] LABS: Anion Gap 12 mmol/L (10-20); BUN (Urea Nitrogen) 32 mg/dL (8.9-20.6); Calc. Creatinine Clearance 102 mL/min (70-130); Calcium 9.9 mg/dL (7.8-10.44); Carbon Dioxide 27 mmol/L (22-29); Chloride 114 mmol/L (98-107); Estimated GFR-MDRD 75; Glucose 128 mg/dL (70-105); Magnesium 2.6 mg/dL (1.6-2.6); Phosphorus 4.9 mg/dL (2.3-4.7); Potassium 3.9 mmol/L (3.5-5.1); Sodium 149 mmol/L (136-145)
[2018-04-07] MEDS: Ascorbic Acid 500 mg Chewable Tablet PO SCH ×2 (08:08→20:45)
[2018-04-07] MEDS: Thiamine HCl 200 MG/2 ML VIAL SLOW IVP SCH (08:08)
[2018-04-07] MEDS: Famotidine/PF 20 mg/2ml Vial SLOW IVP SCH (08:09)
[2018-04-07] MEDS: Enoxaparin Sodium 80 MG/0.8 ML SYRINGE SC SCH ×2 (08:14→20:45)
[2018-04-07] MEDS: Saccharomyces boulardii 250 MG CAP PO SCH (08:49)
--- NOTE | 2018-04-07 18:00 | PRG ---
DATE OF SERVICE: 04/07/2018 SUBJECTIVE: Mr. Conway is a 32-year-old man. The patient is post injury day #21, status post fall sustaining a complex open skull fracture complicated by epidural and subdural hematomas. The patient underwent an emergent craniectomy and evacuation of the said hematoma. He is postop day #20. He subsequently had tracheostomy tube placement. Today, the patient is somewhat comatose. [place] Coma Scale is noted at E3-E4, M5, V1 with the size [address]. This tracheostomy was downsized today to size 4. Once the tracheostomy was corked, the patient had inappropriate words. This improved his [place] Coma Scale to E4, M5, V3. OBJECTIVE: VITAL SIGNS: Today includes blood pressure 132/80, pulse is 99, respiratory rate is 20, temperature 98.6 degrees Fahrenheit, and oxygen saturation 100% on 2 L by nasal cannula oxygen. HEENT: Pupils are equal, round, and reactive to light and accommodation. Tracheostomy site is clean and dry. No evidence of infection. HEART: Reveals regular rate and rhythm. No murmurs or gallops auscultated. LUNGS: Clear to auscultation bilaterally. Breathing, regular and nonlabored. ABDOMEN: Soft, nontender, and nondistended. EXTREMITIES: Reveal 2+ radial and pedal pulses bilaterally. No ankle edema is present. NEUROLOGIC: Reveals improving neurological function. [place] Coma Scale as detailed above. LABORATORY DATA: Laboratory findings today includes a CBC with 10,800 white blood cells, hemoglobin and hematocrit 10.7 and 32.1 respectively, and platelet count is stable at 530,000. Metabolic profile; sodium 149, potassium 3.9, chloride is 114, bicarbonate 27, BUN and creatinine 32 and 1.13 respectively. Glucose 128, magnesium 2.6, phosphorus is 4.9. IMPRESSIONS: 1. Postop day #20, status post emergent craniectomy and evacuation of intracranial hematomas. 2. Improving neurological function following acute severe traumatic brain injury. 3. Stable acute hypernatremia. PLAN: 1. I will increase activity per Physical and Occupational Therapy. 2. We will ask speech and language pathology to evaluate the patient for both speech, cognition, and swallow function. 3. The patient will likely require inpatient rehabilitation, although funding becomes limiting factor in this regards. 4. We will increase free water intake given this patient's persistent hypernatremia. Job ID: [id number]
[2018-04-07] MEDS: Famotidine 20 MG TAB PO SCH (20:44)
[2018-04-08] MEDS: Ascorbic Acid 500 mg Chewable Tablet PO SCH ×2 (08:13→20:34)
[2018-04-08] MEDS: Saccharomyces boulardii 250 MG CAP PO SCH (08:13)
[2018-04-08] MEDS: Enoxaparin Sodium 80 MG/0.8 ML SYRINGE SC SCH ×2 (08:13→20:33)
[2018-04-08] MEDS: Famotidine 20 MG TAB PO SCH ×2 (08:14→20:34)
[2018-04-08] MEDS: Scopolamine 1.5 mg/72 hour Patch TD SCH (08:16)
--- NOTE | 2018-04-08 10:49 | PRG ---
DATE OF SERVICE: 04/08/2018 SUBJECTIVE: He is now essentially over three weeks out from emergent craniotomy and skull fracture repair for multi-compartmental intracranial bleed and parenchymal contusion of the left frontal lobe. He has made slow but steady progress. He is now on the floor of the [facility] and has a dense left third nerve palsy with pupillary dilatation and non-reaction with the pupil again at approximately 7-mm but does not appear to have oculomotor palsy of ocular movement dysfunction. He does have dense ptosis of the left eye. He is U[place]-speaking only, but does not appear to understand my [place] language statements; however, nevertheless, he does follow commands and move all four extremities to command and even gives me a thumbs up. His wound is healing well. Persistent issues at this point other than placement have been a lower extremity DVT was identified and following discussion with Neurosurgery, the patient was placed on anticoagulation, which he is on Lovenox 80 mg subcutaneously daily. This was initiated yesterday. He is also being treated for hypernatremia and this is being done by free water intake. Physiatry is assessing given the patient's need in this regard and finally, his tracheostomy has been corked, and he is able to mouth words. We will continue to follow along with Gaston Man. Job ID: [id number]
--- NOTE | 2018-04-08 11:00 | PRG ---
DATE OF SERVICE: 04/08/2018 SUBJECTIVE: Mr. Conway is a 32-year-old man, post injury day #22, status post fall, resulting in acute severe traumatic brain injury. The patient is postop day #21, status post craniectomy. He remains sleepy, but easily awakens to voice. He is less impulsive today. [place] coma scale today is noted at E3-E4, M6, V3-V4. I was able to offer him some Jell-O, which he tolerated without any difficulty. We were able to get him to sit at the edge of the bed. He was able to maintain his balance. We helped him up in a standing position and he reported lower extremity weakness. He was able to maintain weight for a few minutes. OBJECTIVE: VITAL SIGNS: Today include blood pressure 144/95, pulse 86, respiratory rate 20, temperature 98.6 degrees Fahrenheit, and oxygen saturation is 99% on 2 L by nasal cannula oxygen. HEENT: Pupils are equal, round, reactive to light and accommodation. HEART: Reveals regular rate and rhythm. No murmurs or gallops auscultated. LUNGS: Clear to auscultation bilaterally. Breathing, regular and unlabored. ABDOMEN: Soft, nontender, and nondistended. EXTREMITIES: Reveal 2+ radial and pedal pulses bilaterally. No ankle edema is present. NEUROLOGIC: Improving without any focal neurologic deficits present. IMPRESSION: 1. Postoperative day #21, status post craniectomy and evacuation of traumatic subdural and epidural hematomas. 2. Resolving metabolic encephalopathy. PLAN: 1. Increase activity per Physical and Occupational therapy. 2. I will ask Speech and Language pathologist to evaluate the patient for both speech, cognition, and swallow, and diet will be advanced as appropriate. Job ID: [id number]
[2018-04-08] MEDS: Amantadine HCl 100 mg Capsule PO SCH (20:34)
[2018-04-09] MEDS: Saccharomyces boulardii 250 MG CAP PO SCH (08:40)
[2018-04-09] MEDS: Amantadine HCl 100 mg Capsule PO SCH ×2 (08:40→20:46)
[2018-04-09] MEDS: Ascorbic Acid 500 mg Chewable Tablet PO SCH ×2 (08:40→20:46)
[2018-04-09] MEDS: Famotidine 20 MG TAB PO SCH ×2 (08:40→20:47)
[2018-04-09] MEDS: Enoxaparin Sodium 80 MG/0.8 ML SYRINGE SC SCH ×2 (09:03→20:47)
--- NOTE | 2018-04-09 09:29 | CT ---
HEAD CT WITHOUT CONTRAST: HISTORY: Followup epidural hematoma. Status post craniotomy. COMPARISON: 03/18/2018. FINDINGS: There are the expected postoperative changes compatible with a left frontotemporal craniotomy. The o verlying scalp has decreased postsurgical change. There is thickening of the left dura likely due to remote hemorrhage. There is some intrinsic hyperdensity on the anterior inferior aspect of the extr aaxial space which may represent a small amount of extraaxial hemorrhage, in the left anterior and mi ddle cranial fossa. There is interval malacic change involving the anterior inferior right frontal l obe. There is a hypodensity in the genu of the right internal capsule which may represent a remote l acunar infarct. There is no hydrocephalus. Partial opacification of the paranasal sinuses. IMPRESSION: 1. Malacic change involving the left frontal lobe. 2. Presumed chronic changes of the left dura. Subtle hyperdensity involving the inferior aspect of the left intracranial fossa and left middle cranial fossa may represent a small amount of residual ex traaxial blood. POS: DANYA
--- NOTE | 2018-04-09 09:43 | PRG ---
DATE OF SERVICE: 04/09/2018 DICTATED FOR: Greg Núñez MD SUBJECTIVE: Mr. Yun is essentially three weeks postop, having undergone left-sided craniotomy for epidural hematoma evacuation emergently. Over his hospital course, he was found to have a DVT and placed on anticoagulant including Lovenox 80 units twice a day. He is tolerating this. Repeat head CT was done this morning that shows resolving pneumocephalus as well as resolving and improved left frontal hematoma. His trach valve has been covered and he is tolerating a soft diet as he is sitting up eating breakfast. When asked how he is doing, he says okay and is using his right arm to feed himself. I think now one of the main thing we need to focus on is disposition and our trauma colleagues are working on this. From neurosurgical standpoint, the patient is doing very well and we are pleased with his progress. Please call with any changes in the patient's neurologic status, otherwise we will continue to follow. Job ID: [id number]
--- NOTE | 2018-04-09 11:25 | PRG ---
DATE OF SERVICE: 04/09/2018 SUBJECTIVE: Mr. Trivedi is a 32-year-old man, post injury day #23, status post fall with acute severe traumatic brain injury. The patient is postoperative day #22, status post craniectomy and evacuation of traumatic subdural and epidural hematomas. Currently, the patient is awake and alert. Less impulsive today. His [place] Coma Scale is noted at E4, V4, M6. He tolerates both feeds and has been on a soft diet by mouth since yesterday and tolerating that. Pain control is adequate. Urinary output has been appropriate. OBJECTIVE: VITAL SIGNS: Today, include blood pressure 128/89, pulse 100, respirations 20, temperature is 98.6 degrees Fahrenheit, oxygen saturation 96% on room air. HEENT EXAMINATION: Pupils equal, round, reactive to light and accommodation. He has the left facial nerve palsy. HEART: Reveals regular rate and rhythm. No murmurs or gallops auscultated. LUNGS: Clear to auscultation bilaterally. Breathing, regular, and nonlabored. ABDOMEN: Soft, nontender, nondistended. EXTREMITIES: 2+ with temporal pulses bilaterally. No ankle edema is present. NEUROLOGICAL EXAMINATION: Reveals no significant focal deficits present. IMPRESSIONS: 1. Postoperative day #22, status post craniectomy with evacuation of traumatic epidural and subdural hematomas. 2. Resolving acute posttraumatic metabolic encephalopathy. PLAN: 1. Increase activity per Physical and Occupational Therapy in anticipation for discharge to inpatient rehabilitation when bed is available. 2. Would discontinue tube feeds and increase oral intake as tolerated. The above findings and plan will be discussed with the patient's family once they arrive tomorrow. Job ID: [id number]
[2018-04-09 11:27] LABS: #Basophils 0.1 thou/uL (0.0-0.2); #Eosinphils 0.4 thou/uL (0.0-0.7); #Lymphocytes 3.1 thou/uL (1.20-3.40); #Monocytes 0.7 thou/uL (0.11-0.59); #Neutrophils 5.2 thou/uL (1.40-6.50); %Eosinophils 3.8 % (0.0-10.0); %Monocytes 7.5 % (0.0-10.0); %Neutrophils 54.8 % (42.0-75.0); Hemoglobin 9.8 g/dL (14.0-18.0); Mean Corpuscular HGB CONC 33.4 g/dL (32.0-36.0); Mean Corpuscular Hemoglobin 28.8 pg (27.0-31.0); Platelet Count 433 thou/uL (130-400); RBC Distribution Width 14.1 % (11.5-14.5); Red Blood Cell (RBC) Count 3.41 mill/uL (4.70-6.10); White Blood Cell (WBC) Count 9.5 thou/uL (4.8-10.8)
[2018-04-09 11:46] LABS: Anion Gap 14 mmol/L (10-20); BUN (Urea Nitrogen) 23 mg/dL (8.9-20.6); Calc. Creatinine Clearance 111 mL/min (70-130); Calcium 9.5 mg/dL (7.8-10.44); Carbon Dioxide 26 mmol/L (22-29); Chloride 111 mmol/L (98-107); Estimated GFR-MDRD 83; Glucose 105 mg/dL (70-105); Magnesium 2.2 mg/dL (1.6-2.6); Potassium 3.6 mmol/L (3.5-5.1); Sodium 147 mmol/L (136-145)
[2018-04-10 06:13] LABS: Anion Gap 13 mmol/L (10-20); BUN (Urea Nitrogen) 23 mg/dL (8.9-20.6); Calc. Creatinine Clearance 112 mL/min (70-130); Calcium 9.4 mg/dL (7.8-10.44); Carbon Dioxide 27 mmol/L (22-29); Chloride 108 mmol/L (98-107); Estimated GFR-MDRD 83; Glucose 111 mg/dL (70-105); Potassium 3.5 mmol/L (3.5-5.1); Sodium 144 mmol/L (136-145)
[2018-04-10] MEDS: Ascorbic Acid 500 mg Chewable Tablet PO SCH ×2 (08:59→20:32)
[2018-04-10] MEDS: Saccharomyces boulardii 250 MG CAP PO SCH (08:59)
[2018-04-10] MEDS: Amantadine HCl 100 mg Capsule PO SCH ×2 (08:59→20:32)
[2018-04-10] MEDS: Famotidine 20 MG TAB PO SCH ×2 (09:00→20:32)
[2018-04-10] MEDS: Enoxaparin Sodium 80 MG/0.8 ML SYRINGE SC SCH ×2 (09:00→20:32)
--- NOTE | 2018-04-10 12:43 | PRG ---
DATE OF SERVICE: 04/10/2018 Mr. Trivedi is now 3-1/2 weeks out from left-sided craniotomy. He remains neurologically stable. Head CT demonstrated expected postoperative changes. He has been initiated on anticoagulation for treatment of deep venous thrombosis in the lower extremity. We are awaiting placement. He has had his tracheostomy removed. Frankly, I think he is doing very well. He does have left 3rd nerve palsy from the skull base fracture. Job ID: [id number]
--- NOTE | 2018-04-10 13:55 | PRG ---
DATE OF SERVICE: 04/10/2018 SUBJECTIVE: Mr. Trivedi is a 32-year-old man, post injury day #23 sustaining severe traumatic brain injury. The patient is postoperative day #23, status post craniectomy and evacuation of traumatic subdural and epidural hematomas. He is progressively more interactive, less impulsive. [place] coma scale today is noted at E4, M6, V4. The patient is tolerating pureed diet, having normal bowel and urinary function. He participates well with physical and occupational therapy. His balance is improving. OBJECTIVE: VITAL SIGNS: His vital signs today includes blood pressure 137/90, pulse 78, respiratory rate 16, temperature 98.8 degrees Fahrenheit, and oxygen saturations 100% on room air. IMPRESSION: Acute severe traumatic brain injury postop day #23, status post craniectomy and evacuation of multiple intracranial hematomas. PLAN: Increase activity per Physical and Occupational Therapy. Aisha bed is unavailable for this patient in inpatient rehabilitation. We will have discussion with the family today and anticipate discharge in next few days to home unless aisha bed could be secured in Swing [facility]. We will advance diet today as the patient appears more awake and alert and more coordinated. I suspect that he will be able to manage a regular diet. Job ID: [id number]
[2018-04-11] MEDS: Enoxaparin Sodium 80 MG/0.8 ML SYRINGE SC SCH ×2 (08:53→21:43)
[2018-04-11] MEDS: Famotidine 20 MG TAB PO SCH ×2 (08:53→21:43)
[2018-04-11] MEDS: Ascorbic Acid 500 mg Chewable Tablet PO SCH ×2 (08:53→21:43)
[2018-04-11] MEDS: Saccharomyces boulardii 250 MG CAP PO SCH (08:54)
[2018-04-11] MEDS: Scopolamine 1.5 mg/72 hour Patch TD SCH (08:54)
[2018-04-11] MEDS: Amantadine HCl 100 mg Capsule PO SCH ×2 (08:54→21:43)
--- NOTE | 2018-04-11 12:34 | PRG ---
DATE OF SERVICE: 04/11/2018 Mr. Trivedi is now three and half weeks from craniotomy. He is awake with a stable left third nerve palsy. He waves to me and says that he is doing well in English. His wound is healing well. Disposition is the biggest issue here. He is on full-strength anticoagulation for DVT. I should note that we have repeated a head CT since starting anticoagulation and it has demonstrated continued healing of his intracranial blood products. Job ID: [id number]
--- NOTE | 2018-04-11 14:17 | PRG ---
DATE OF SERVICE: 04/11/2018 SUBJECTIVE: This is a 32-year-old man, post injury day #24. Status post fall with acute severe traumatic brain injury. The patient is postop day #23 post craniectomy and evacuation of the traumatic subdural and epidural hematomas. The patient is currently resting, awakens easily. Employment Director used to communicate with the patient. The patient voices no complaints at this time. The patient is tolerating his diet and having good urinary function. The patient continues to improve daily with his balance and walking. OBJECTIVE: VITAL SIGNS: Temperature 98.6, pulse 86, respirations 18, SpO2 96% on room air, blood pressure 138/95. GENERAL: The patient is awake and alert, in no distress. HEENT: The patient with bandage on head. Continues to have left eye palsy. RESPIRATORY: Regular rate. Equal chest rise and fall. CARDIOVASCULAR: No pedal edema. Regular rate and rhythm. NEUROLOGIC: GCS; E4 V4 M6. Moves all extremities. IMPRESSION: Acute traumatic brain injury postoperative day #23, status post craniectomy and evacuation of multiple intracranial hematomas. PLAN: Increase activity per physical therapy and occupational therapy. Awaiting on family to arrange where the patient can go home as he will need assistance, if the patient is not able to be placed into a aisha bed for inpatient rehab. We will continue the patient's regular diet. We will continue supportive care. This patient was evaluated with Dr. Daugherty. Job ID: [id number]
[2018-04-12] MEDS: Famotidine 20 MG TAB PO SCH ×2 (08:50→20:39)
[2018-04-12] MEDS: Saccharomyces boulardii 250 MG CAP PO SCH (08:50)
[2018-04-12] MEDS: Amantadine HCl 100 mg Capsule PO SCH ×2 (08:50→20:39)
[2018-04-12] MEDS: Enoxaparin Sodium 80 MG/0.8 ML SYRINGE SC SCH ×2 (08:50→20:40)
[2018-04-12] MEDS: Ascorbic Acid 500 mg Chewable Tablet PO SCH ×2 (08:50→20:39)
[2018-04-12 17:12] VITALS: BMI 31.5
--- NOTE | 2018-04-12 18:19 | PRG ---
DATE OF SERVICE: 04/11/2018 SUBJECTIVE: This is a 32-year-old man, status post injury day #25. The patient fell 18 feet and sustained a severe traumatic brain injury. The patient is postop day #24 craniectomy and evacuation of the traumatic subdural and epidural hematomas. The patient is currently sitting up in the chair, in no distress. Associate Professor Of Medicine is at bedside. The patient reports good appetite. The patient voices no concerns at this time. Denies any pain. Continues to have good urinary function. The patient continues to progress with physical therapy and progressed with balancing and walking. OBJECTIVE: VITAL SIGNS: Temperature 98.5, pulse 80, respirations 16, SpO2 of 97% on room air, and blood pressure 126/91. GENERAL: The patient is awake, alert, in no distress. HEENT: The patient with bandage on head. The patient continues to have left third cranial nerve palsy. CARDIOVASCULAR: Regular rate and rhythm. RESPIRATORY: Equal, nonlabored. No audible rhonchi or wheezing. EXTREMITIES: Moves all extremities. No pedal edema. NEUROLOGIC: Reveals improving neurologic function, continued left third cranial nerve palsy. ASSESSMENT AND PLAN: We will continue supportive care. Awaiting for family to make a decision when the patient is able to safely go home with them and will be watched. The patient has denied previous aisha and rehab bed. Case management is working on one more location. We will continue regular diet. We will continue physical therapy and occupational therapy while the patient is inpatient. The patient's plan was discussed with the attending surgeon. Job ID: [id number]
[2018-04-12] MEDS: Acetaminophen 500 MG TAB PER TUBE PRN (20:39)
[2018-04-13] MEDS: Famotidine 20 MG TAB PO SCH (08:31)
[2018-04-13] MEDS: Saccharomyces boulardii 250 MG CAP PO SCH (08:32)
[2018-04-13] MEDS: Ascorbic Acid 500 mg Chewable Tablet PO SCH (08:32)
[2018-04-13] MEDS: Enoxaparin Sodium 80 MG/0.8 ML SYRINGE SC SCH (08:32)
[2018-04-13] MEDS: Amantadine HCl 100 mg Capsule PO SCH (08:32)
--- NOTE | 2018-04-13 12:56 | PRG ---
DATE OF SERVICE: 04/13/2018 SUBJECTIVE: Mr. Conway is at hospital day #27 for left-sided craniotomy and multi-compartmental hematoma evacuation. He opens his eyes and looks at me and nods that he is doing well. His wound is dry. He has attempted to pick at his wound at times and pulled the scab off, but there is no evidence of infection or wound dehiscence or any wound issue. The plan is for him to be transferred today. I am very pleased with how he is doing. We have a head CT few weeks out and at this point, I think he simply means he needs time to continue to heal. Job ID: [id number]
[2018-04-13 16:05] VITALS: BP 143/95; TEMP 98.7
[2018-04-13] MEDS: Acetaminophen 500 MG TAB PER TUBE PRN (16:37)
--- NOTE | 2018-04-14 04:10 | DIS ---
DATE OF ADMISSION: 03/17/2018 DATE OF DISCHARGE: 04/13/2018 ADMISSION DIAGNOSES: 1. Status post fall from 18 to 20 feet. 2. Severe traumatic brain injury, status post decompressive surgery with epidural, subarachnoid, and subdural hemorrhages. 3. Multiple facial fractures, left greater than right. 4. Acute traumatic respiratory failure, secondary to above. 5. T3 and L1 compression fractures. 6. Acute traumatic pain. 7. Metabolic acidosis. 8. Hypocalcemia. CONSULTATIONS: Neurosurgery, Dr. Núñez. PROCEDURES: 1. Left frontotemporal craniotomy for epidural, subdural, intraparenchymal hemorrhagic contusion, evacuation, and left frontal lobe debridement. 2. Repair of complex comminuted open skull fracture. 3. Tracheostomy tube placement. 4. PEG-tube placement. 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 The patient landed on his left side. He was initially brought to the emergency department at the [facility], where he underwent evaluation and examination and was noted to have severe traumatic brain injury requiring neurosurgical intervention. The patient was then brought to our facility by ambulance where he underwent exam, evaluation, and emergent operative intervention of the above procedures. The patient will be admitted to the critical care unit postoperatively, where he remained on the ventilator for several days. The patient remained on the ventilator for an extended period of time and would eventually undergo tracheostomy and PEG tube placement. The patient would continue to progress or eventually be able to start work with Physical and Occupational Therapy. Due to insurance reasons, the patient was not able to be placed immediately, so had an extended amount of time at our acute facility. He would at the time of discharge, be able to be discharged to a [facility] facility. At the time of discharge, he was tolerating a diet. His pain was controlled. His bowel function had returned. His tracheostomy had been decannulated and was able to ambulate with only contact guard by the therapist. The patient will follow up with Dr. Núñez per his instructions. His clinic will contact him to schedule his repeat exam. They will follow up with the Trauma Clinic in 2 weeks. We will evaluate his PEG tube and likely discontinue it at that time. The patient may follow up with us sooner as needed. The patient was also given strict return precautions by the Neurosurgical Service. Job ID: [id number]
== END 2018-04-13 19:20 | DRG 3 ==
LOC: ERS 17:12 → EDBD 17:12 → SDC 18:31 → EDBD 21:04 → CCU 21:04 → IMCU/EMU 03-29 18:17 → SURG A 03-31 13:10
PROVIDERS: ADMIT Surgery; ATTEND Surgery
PROC: 00C30ZZ Extirpation of Matter from Intracranial Epidural Space, Open Approach (ICD-10-PCS; principal; 2018-03-17)
PROC: 00C40ZZ Extirpation of Matter from Intracranial Subdural Space, Open Approach (ICD-10-PCS; 2018-03-17)
PROC: 00C00ZZ Extirpation of Matter from Brain, Open Approach (ICD-10-PCS; 2018-03-17)
PROC: 0NS004Z Reposition Skull with Internal Fixation Device, Open Approach (ICD-10-PCS; 2018-03-17)
PROC: 5A1955Z Respiratory Ventilation, Greater than 96 Consecutive Hours (ICD-10-PCS; 2018-03-17)
PROC: 02HV33Z Insertion of Infusion Device into Superior Vena Cava, Percutaneous Approach (ICD-10-PCS; 2018-03-17)
PROC: 30233N1 Transfusion of Nonautologous Red Blood Cells into Peripheral Vein, Percutaneous Approach (ICD-10-PCS; 2018-03-18)
PROC: 0B9F8ZX Drainage of Right Lower Lung Lobe, Via Natural or Artificial Opening Endoscopic, Diagnostic (ICD-10-PCS; 2018-03-24)
PROC: 0B113F4 Bypass Trachea to Cutaneous with Tracheostomy Device, Percutaneous Approach (ICD-10-PCS; 2018-03-25)
PROC: 0DH63UZ Insertion of Feeding Device into Stomach, Percutaneous Approach (ICD-10-PCS; 2018-03-25)
PROC: 02HV33Z Insertion of Infusion Device into Superior Vena Cava, Percutaneous Approach (ICD-10-PCS; 2018-03-31)
DX: S06.5X9A Traumatic subdural hemorrhage with loss of consciousness of unspecified duration, initial encounter (principal); G93.5 Compression of brain; J15.0 Pneumonia due to Klebsiella pneumoniae; J96.01 Acute respiratory failure with hypoxia; S22.038A Other fracture of third thoracic vertebra, initial encounter for closed fracture; S32.018A Other fracture of first lumbar vertebra, initial encounter for closed fracture; E87.2 Acidosis; D62 Acute posthemorrhagic anemia; E87.0 Hyperosmolality and hypernatremia; I82.441 Acute embolism and thrombosis of right tibial vein; S02.0XXB Fracture of vault of skull, initial encounter for open fracture; S06.6X9A Traumatic subarachnoid hemorrhage with loss of consciousness of unspecified duration, initial encounter; S06.4X9A Epidural hemorrhage with loss of consciousness of unspecified duration, initial encounter; E83.51 Hypocalcemia; R40.2434 Glasgow coma scale score 3-8, 24 hours or more after hospital admission; S02.40FA Zygomatic fracture, left side, initial encounter for closed fracture; S02.82XA Fracture of other specified skull and facial bones, left side, initial encounter for closed fracture; W13.2XXA Fall from, out of or through roof, initial encounter; Y93.H3 Activity, building and construction; Y92.69 Other specified industrial and construction area as the place of occurrence of the external cause; Y99.0 Civilian activity done for income or pay
CPT/HCPCS: 36415; 36416; 36430; 36569; 70450; 70486; 71045; 71260; 72128; 72131; 74177; 80048; 80053; 80202; 81002; 81015; 82805; 83735; 83930; 83935; 84100; 84300; 85025; 85610; 85730; 86335; 86850; 86900; 86901; 87040; 87070; 87077; 87086; 87186; 87205; 87324; 87449; 89220; 93970; 94002; 94003; 94640; 99285; A4216; C1713; C1751; G0390; G8978-GP-CN; G8979-GP-CK; G8987-GO-CN; G8988-GO-CK; G9159-GN-CM; G9160-GN-CM; J0131; J0360; J0690; J0692; J1642; J1644; J1650; J1940; J1953; J1956; J2001; J2060; J2150; J2270; J2370; J2543; J2704; J3010; J3370; J3411; J3475; J3480; J3490; J7050; J7799; P9016; P9045; S0028

== ENCOUNTER 2018-04-23 12:43 | Emergency (ER) | payer SELFPAY ==
[2018-04-23 13:27] LABS: #Basophils 0.1 thou/uL (0.0-0.2); #Eosinphils 0.4 thou/uL (0.0-0.7); #Lymphocytes 2.6 thou/uL (1.20-3.40); #Monocytes 0.6 thou/uL (0.11-0.59); #Neutrophils 4.5 thou/uL (1.40-6.50); %Basophils 0.7 % (0.0-1.0); %Eosinophils 4.9 % (0.0-10.0); %Lymphocytes 31.7 % (21.0-51.0); %Monocytes 7.9 % (0.0-10.0); %Neutrophils 54.8 % (42.0-75.0); Mean Corpuscular HGB CONC 31.7 g/dL (32.0-36.0); Mean Corpuscular Hemoglobin 27.2 pg (27.0-31.0); Mean Corpuscular Volume 85.9 fL (78.0-98.0); Mean Platelet Volume 6.3 fL (7.4-10.4); Platelet Count 370 thou/uL (130-400); RBC Distribution Width 15.1 % (11.5-14.5); Red Blood Cell (RBC) Count 4.04 mill/uL (4.70-6.10); White Blood Cell (WBC) Count 8.1 thou/uL (4.8-10.8)
[2018-04-23 13:52] LABS: ALT (SGPT) 16 U/L (8-55); AST (SGOT) 18 U/L (5-34); Albumin 3.5 g/dL (3.5-5.0); Alkaline Phosphatase 127 U/L (40-150); Anion Gap 17 mmol/L (10-20); BUN (Urea Nitrogen) 5 mg/dL (8.9-20.6); Bilirubin, Total 0.2 mg/dL (0.2-1.2); Calc. Creatinine Clearance 0 mL/min (70-130); Carbon Dioxide 21 mmol/L (22-29); Chloride 103 mmol/L (98-107); Estimated GFR-MDRD Greater than 90; Globulin 3.9 g/dL (2.4-3.5); Glucose 93 mg/dL (70-105); Potassium 3.5 mmol/L (3.5-5.1); Protein, Total 7.4 g/dL (6.0-8.3); Sodium 137 mmol/L (136-145)
== END 2018-04-23 16:46 | disposition home or self-care (01) ==
LOC: ERS 12:43
DX: Z43.1 Encounter for attention to gastrostomy (principal); Z79.1 Long term (current) use of non-steroidal anti-inflammatories (NSAID); Z79.899 Other long term (current) drug therapy
CPT/HCPCS: 36415; 80053; 85025; 99284

== ENCOUNTER 2018-05-03 10:21 | Outpatient (CLI) | payer OTHER ==
--- NOTE | 2018-05-03 13:38 | CT ---
CT BRAIN NONCONTRAST: DATE: 05/03/2018. TIME: 10:30 a.m. HISTORY: A 32-year-old male status post left craniotomy, S06.4X9A. Followup. COMPARISON: 04/09/2018. FINDINGS: Again noted are the left frontotemporal craniotomy changes. The overlying skin madisyn have been rem hilda. There has been interval further shrinkage of the postsurgical superficial soft tissue edema ov erlying the craniotomy flap. Deep to the osseous craniotomy flap, again noted are the moderately large confluent regions of low at tenuation involving inferior frontal lobe, and adjacent left lateral inferior frontal lobe, and anter olateral left temporal lobe. These are consistent with evolution of prior hemorrhagic contusions int o early encephalomalacia and gliosis. There is moderately high-density material interspersed with th e low-density material at the lateral aspect of the left anterior inferior frontal lobe, just superio r to the fractured left orbital roof. This is contiguous with a broad, thin sheet of moderately high -density extraaxial material abutting the lateral surfaces of the left frontal and temporal lobes. T his appearance has not changed, suggesting that this material could represent a surgically placed she et of extraaxial material deep to the craniotomy flap. There is mild ex vacuo dilation of the fronta l horn of the left lateral ventricle. No obstructive hydrocephalus. There is a small late subacute lacunar infarction at the junction between the genu of the right internal capsule, posterior limb of right internal capsule, and globus pallidus. It was probably acute on 03/18/2018. It has further sh runk since 04/09/2018. No midline shift. No new hemorrhage. IMPRESSION: 1. Status post left pterional craniotomy, deep to which there is a large region of intraaxial low at tenuation in the left frontal lobe and left temporal lobe, representing transition from edema to ence phalomalacia. This has not changed since 04/09/2018. 2. High-density extraaxial thin sheet of material deep to the left osseous craniotomy flap may repre sent surgically placed material. 3. 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 4. No mass effect, and no acute findings. JALEN Pacheco POS: DANYA
== END 2018-05-03 10:22 | disposition home or self-care (01) ==
LOC: TBSIIMAG 10:21
PROVIDERS: ATTEND Surgery
DX: S06.4X0D Epidural hemorrhage without loss of consciousness, subsequent encounter (principal); G93.89 Other specified disorders of brain; Z98.890 Other specified postprocedural states; Z86.73 Personal history of transient ischemic attack (TIA), and cerebral infarction without residual deficits
CPT/HCPCS: 70450